=== PATIENT | male | born 1985 | race Caucasian/White ===

== ENCOUNTER → 2018-04-11 11:34 | Outpatient (CLI) | payer OTHER, SELFPAY | PROVIDERS: Visit Provider Internal Medicine | DX: B20 Human immunodeficiency virus [HIV] disease (principal) | CPT/HCPCS: 36415 ==

== ENCOUNTER → 2022-12-22 06:51 | Outpatient (CLI) | payer MEDICAID, SELFPAY ==
[2022-12-22 18:05] LABS: Basophils % 0.5 % (0.1-2.0); Eosinophils # 0.1 K/mm3 (0.0-0.4); Eosinophils % 1.6 % (0.1-12.0); Hematocrit 50.1 % (42.0-52.0); Hemoglobin 16.6 g/dL (14.1-18.0); Lymphocytes # 0.9 K/mm3 (0.7-4.5); Lymphocytes % 11.3 % (10-50); Mean Corpuscular HGB Conc 33.2 g/dL (31.8-35.4); Mean Corpuscular Volume 93.6 fl (80-94); Mean Platelet Volume 12.1 fl (7.4-10.4); Monocytes # 0.8 K/mm3 (0.1-1.0); Monocytes % 10.2 % (1.7-9.3); Neutrophils # 6.2 K/mm3 (1.8-7.8); Neutrophils % 76.4 % (37.0-80.0); Platelet Count 96 K/mm3 (142-424); Red Blood Count 5.35 M/mm3 (4.60-6.20); Red Cell Distribution Width 13.8 % (11.5-17.5); White Blood Count 8.1 K/mm3 (4.8-10.8)
== END ==
PROVIDERS: PCP Nurse Practitioner; Visit Provider Nurse Practitioner
DX: B20 Human immunodeficiency virus [HIV] disease (principal); R05.9 Cough, unspecified; Z87.01 Personal history of pneumonia (recurrent)
CPT/HCPCS: 85025

== ENCOUNTER → 2022-12-23 12:33 | Outpatient (CLI) | payer MEDICAID, SELFPAY ==
--- NOTE | 2022-12-23 12:37 | XR_ITS ---
FINAL REPORT CLINICAL HISTORY: cough, history of pneumonia, HIV COMPARISON: none FINDINGS: PA and lateral views of the chest were obtained. There is no prior exam for comparison. The cardiac and mediastinal silhouettes are within normal limits. There is right middle lobe opacity which may represent pneumonia. The lungs are otherwise clear. There is no pleural effusion or pneumothorax. No acute osseous abnormality is identified. IMPRESSION: Right middle lobe opacity may represent pneumonia. Reviewed, Interpreted and Dictated by Mary Ann Washington MD Transcribed by Diana Tellez Authenticated and [facility]
== END ==
PROVIDERS: PCP Nurse Practitioner; Visit Provider Nurse Practitioner
DX: B20 Human immunodeficiency virus [HIV] disease (principal); R05.9 Cough, unspecified; Z87.01 Personal history of pneumonia (recurrent)
CPT/HCPCS: 71046

== ENCOUNTER → 2023-01-17 10:36 | Outpatient (CLI) | payer MEDICAID, SELFPAY ==
[2023-01-17 19:05] LABS: Adenovirus,PCR Not Detected (NotDetected); Bordetella Pertussis Not Detected (NotDetected); Chlamydophila Pneumoniae, PCR Not Detected (NotDetected); Coronavirus 19, PCR Not Detected (NotDetected); Coronavirus 229E Not Detected (NotDetected); Coronavirus NL63 Not Detected (NotDetected); Coronavirus OC43 Not Detected (NotDetected); Coronovirus HKU1,PCR Not Detected (NotDetected); Human Metapneumovirus Not Detected (NotDetected); Influenza A, PCR Not Detected (NotDetected); Influenza AH1, 2009 Not Detected (NotDetected); Influenza AH1, PCR Not Detected (NotDetected); Influenza AH3,PCR Not Detected (NotDetected); Influenza B, PCR Not Detected (NotDetected); Mycoplasma Pneumoniae, PCR Not Detected (NotDetected); Parainfluenza 1, PCR Not Detected (NotDetected); Parainfluenza 2, PCR Not Detected (NotDetected); Parainfluenza 3, PCR Not Detected (NotDetected); Parainfluenza 4, PCR Not Detected (NotDetected); Respiratory Syncytial Virus Not Detected (NotDetected); Rhinovirus/Enterovirus Not Detected (NotDetected)
== END ==
PROVIDERS: PCP Nurse Practitioner; Visit Provider Nurse Practitioner
DX: J02.9 Acute pharyngitis, unspecified (principal); J06.9 Acute upper respiratory infection, unspecified
CPT/HCPCS: 87581; 87632; 87798; C9803; U0003; U0005

== ENCOUNTER 2023-10-15 12:28 | Emergency (ER) | payer MEDICAID, SELFPAY ==
[2023-10-15] VITALS (8 sets, daily range): BP systolic 106–154; BP diastolic 90–103; PULSE 106–121; RESP 18–28; TEMP 36.8; O2SAT 93–99; BMI 25.8; BMI 18.6
--- NOTE | 2023-10-15 13:37 | EXP.UTC ---
Discharge Plan Disposition Patient Disposition: Still a Patient Condition: Fair Prescriptions Prescriptions: No Action amoxicillin-pot clavulanate 875-125 mg tablet 1 tab PO BID Qty: 20 0RF lgwblmwqxunmrbz-arrhtbbqj-DC [Bromfed DM] 2-30-10 mg/5 mL syrup 5 ml PO Q4-6H PRN (Reason: cold symptoms) Qty: 240 0RF cetirizine 10 mg tablet 10 mg PO DAILY Qty: 30 5RF Biktarvy 50-200-25 mg tablet 1 tab PO DAILY Referrals Follow up/Referrals: Becky Aguilar APRN [Primary Care Provider] - See instructions Clinical Impressions Clinical Impression: Alcohol withdrawal, HIV (human immunodeficiency virus infection), Alcohol dependence Discharge ED Provider: Malathi Y[place] [facility] [place] General Chief complaint: Allergic Reaction Stated complaint: shakey, SOA, Sweating Time Seen by Provider: 10/15/23 13:37 History of Present Illness Provider Complaint: Patient states that he drink a lot of Vodka a few nights ago and not sure if he may be withdrawals or not States that last night he started shaking uncontrollably all over, feeling like he was losing his mind, feeling like he was over heating, sweating and like he was going crazy States that the ambulance came out to his house last night and checked his vitals and tried to get him to come to the hospital but he wouldnt come and today he started again with the same symptoms States that he does drink several times a week but not as much as he did on this night reports does smoke marijuana but denies the use of other drugs Related Data Home Medications Medication Instructions Recorded Confirmed bictegravir 50 mg-emtricitabine 1 tab PO DAILY 01/17/23 01/17/23 200 mg-tenofovir alafenam 25 mg tablet (Biktarvy) Previous Rx's Medication Instructions Recorded amoxicillin 875 mg-potassium 1 tab PO BID #20 tabs 01/17/23 clavulanate 125 mg tablet xzezgckwtrljzcl-kzqqjrgcenuequx-LM 5 ml PO Q4-6H PRN cold symptoms 01/17/23 2 mg-30 mg-10 mg/5 mL oral syrup #240 mL (Bromfed DM) cetirizine 10 mg tablet 10 mg PO DAILY #30 tabs 01/17/23 Allergies Allergy/AdvReac Type Severity Reaction Status Date / Time No Known Allergies Allergy Verified 01/17/23 10:25 [facility] Disclaimer: The information contained in this section may have been updated after the patient was seen, as this information can be updated by other users. Medical History History of pneumonia History of smoking HIV (human immunodeficiency virus infection) HIV disease Family History Grandmother Diabetes Social History Smoking Status: Current every day smoker alcohol intake: never substance use type: former substance user current occupational status: unemployed Travel in the last 8 weeks: Inside the [place] ROS Obtained: Yes All systems reviewed & no additional complaints except as documented and Yes Systems reviewed as appropriate & no additional complaints except as documented Constitutional Constitutional: Reports system reviewed and no additional complaints, except as documented, Reports as per HPI and Reports excessive sweating ENT Ears, Nose, Mouth, and Throat: Reports system reviewed and no additional complaints, except as documented, Reports as per HPI and Reports dizziness Cardiovascular Cardiovascular: Reports palpitations Respiratory Respiratory: Reports system reviewed and no additional complaints, except as documented, Reports as per HPI and Reports shortness of breath Gastrointestinal Gastrointestingal: Reports system reviewed and no additional complaints, except as documented and as per HPI Neurologic Neurologic: Reports system reviewed and no additional complaints, except as documented, Reports as per HPI, Reports dizziness and Reports other (reports shaking all over uncontrollably ) End
--- NOTE | 2023-10-15 13:38 | PC.NURSE ---
PATIENT SENT TO ER PER Leyla MCQUEEN APRN FOR FURTHER EVALUATION. REPORT GIVEN TO DR. RAMIREZ BY Leyla MCQUEEN APRN. PATIENT AMBULATED TO ER WITH [facility] STAFF ASSIST. FAMILY AT BEDSIDE
[2023-10-15 13:39] LABS: POC Glucose,Bedside 143 (70-110)
--- NOTE | 2023-10-15 14:03 | HMH.EDGENADL ---
Discharge Plan Disposition Patient Disposition: Xfer Short-Term Hosp Condition: Fair Prescriptions Prescriptions: No Action amoxicillin-pot clavulanate 875-125 mg tablet 1 tab PO BID Qty: 20 0RF qwtaugmklpiwbhp-dfexfwidy-BC [Bromfed DM] 2-30-10 mg/5 mL syrup 5 ml PO Q4-6H PRN (Reason: cold symptoms) Qty: 240 0RF cetirizine 10 mg tablet 10 mg PO DAILY Qty: 30 5RF Biktarvy 50-200-25 mg tablet 1 tab PO DAILY Referrals Follow up/Referrals: Becky Aguilar APRN [Primary Care Provider] - See instructions Clinical Impressions Clinical Impression: Alcohol withdrawal, HIV (human immunodeficiency virus infection), Alcohol dependence, Hypomagnesemia, Thrombocytopenia, Acute alcoholic hepatitis, Acute hyponatremia Discharge ED Provider: Mann Banerjee General Adult HPI <Mann Banerjee MD - Last Filed: 10/15/23 14:51> General Chief complaint: Alcohol Stated complaint: shakey, SOA, Sweating Time Seen by Provider: 10/15/23 13:37 Mode of Arrival: Ambulatory Source of Information: Patient Limitations: No Limitations Description of Symptoms (Recalled from ER Triage Doc. by RN): PATIENT C/O SHAKING, HOT FLASHSES, ANXIETY AND HIGH BLOOD PRESSURE. HE STATES HE STARTED SHAKING UNCONTROLLABLY LAST NIGHT AND FELT LIKE HE WAS LOSING HIS MIND. HE STATES THOUGHT HE WAS GOING THROUGH ALCOHOL [facility] AFTER DRINKING VODKA THE NIGHT BEFORE. PATIENT VISIBLY SHAKING AND UNABLE TO SIT STILL AT THIS TIME History of Present Illness HPI narrative: Patient is a 38-year-old male with a history of heavy alcohol abuse over the last 18 years most recently where he drinks at least 1 pint of vodka 3-4 times a week culminating in 2 nights ago having 2 pints of vodka and having severe anxiety feeling like he was going out of his head yesterday at which point he called EMS they advised that he come to the emergency department but he refused and then came to the urgent treatment clinic today and was transferred to the emergency department with significant anxiety. Patient's also had extensive diarrhea and vomiting denies any other drug use specifically meth occasionally will smoke marijuana. Of note he does have HIV has been off of his antiretroviral medications for 2 months but has his Biktarvy now refilled but states that he has not been undetectable from a viral load standpoint and his CD4 count has remained low. States he does have follow-up with HIV clinic and [place]. Related Data Home Medications Medication Instructions Recorded Confirmed bictegravir 50 mg-emtricitabine 1 tab PO DAILY 01/17/23 01/17/23 200 mg-tenofovir alafenam 25 mg tablet (Biktarvy) Previous Rx's Medication Instructions Recorded amoxicillin 875 mg-potassium 1 tab PO BID #20 tabs 01/17/23 clavulanate 125 mg tablet ljcidhgxdfntvjk-iyjzzhbnwdzeifq-RB 5 ml PO Q4-6H PRN cold symptoms 01/17/23 2 mg-30 mg-10 mg/5 mL oral syrup #240 mL (Bromfed DM) cetirizine 10 mg tablet 10 mg PO DAILY #30 tabs 01/17/23 Allergies Allergy/AdvReac Type Severity Reaction Status Date / Time No Known Allergies Allergy Verified 01/17/23 10:25 [facility] <Mann Banerjee MD - Last Filed: 10/15/23 14:51> [facility] Disclaimer: The information contained in this section may have been updated after the patient was seen, as this information can be updated by other users. Medical History History of pneumonia History of smoking HIV (human immunodeficiency virus infection) HIV disease Family History Grandmother Diabetes Social History Smoking Status: Current every day smoker alcohol intake: never substance use type: former substance user current occupational status: unemployed Travel in the last 8 weeks: Inside the [place] <Mann Banerjee MD - Last Filed: 10/15/23 14:51> ROS Obtained: Yes
[2023-10-15 14:12] LABS: Basophils % 0.5 % (0.1-2.0); Eosinophils # 0.1 K/mm3 (0.0-0.4); Eosinophils % 1.8 % (0.1-12.0); Hematocrit 56.1 % (42.0-52.0); Lymphocytes # 1.1 K/mm3 (0.7-4.5); Lymphocytes % 17.1 % (10-50); Mean Corpuscular HGB Conc 34.6 g/dL (31.8-35.4); Mean Corpuscular Hemoglobin 32.9 pg (27.0-31.2); Mean Platelet Volume 10.4 fl (7.4-10.4); Monocytes # 0.4 K/mm3 (0.1-1.0); Neutrophils # 4.9 K/mm3 (1.8-7.8); Neutrophils % 74.6 % (37.0-80.0); Red Cell Distribution Width 14.9 % (11.5-17.5); White Blood Count 6.6 K/mm3 (4.8-10.8)
[2023-10-15 14:15] LABS: Alanine Aminotransferase 125 U/L (12-78); Albumin Level 4.1 g/dl (3.5-5.0); Albumin/Globulin Ratio 0.7 (1.1-1.8); Alkaline Phosphatase 123 U/L (38-126); Aspartate Amino Transferase 233 U/L (17-59); Bilirubin,Total 1.9 mg/dl (0.2-1.3); Blood Urea Nitrogen 14 mg/dl (9-20); Calcium 9.7 mg/dl (8.4-10.2); Carbon Dioxide 33 mmol/L (22.0-30.0); Chloride 91 mmol/L (98-107); Creatinine Clearance Estimated 132 mL/min (50-200); Estimated Glomerular Filt Rate 126 ml/min (>60); GFR (African American) 152 ML/MIN (>60); Globulin 5.9 g/dL (1.3-3.2); Glucose 120 mg/dl (74-100)
[2023-10-15 14:16] LABS: Hemoglobin 19.6 g/dL (14.1-18.0); Platelet Count 29 K/mm3 (142-424)
[2023-10-15 14:17] LABS: Ethyl Alcohol < 10 mg/dl (0-10)
--- NOTE | 2023-10-15 14:17 | PC.NURSE ---
lab called with critical platelets of 29 MD aware
[2023-10-15 14:18] LABS: Anion Gap 8.2 mEq/L (5-15); Potassium 4.2 mmoL/L (3.5-5.1); Sodium 128 mmol/L (136-145)
[2023-10-15 14:30] LABS: INR 1.11 (0.9-1.1); Prothrombin Time 11.9 seconds (10.1-12.5)
--- NOTE | 2023-10-15 14:37 | PC.NURSE ---
Spoke with Toby at [facility] transfer center about possible pt transfer. Advised they would call back when the physician is available.
--- NOTE | 2023-10-15 15:04 | PC.NURSE ---
Dr. Martinez speaking with Dr. Foote at about possible transfer
--- NOTE | 2023-10-15 15:06 | PC.NURSE ---
Pt accepted to [facility] by [facility]
--- NOTE | 2023-10-15 15:14 | PC.NURSE ---
Called report to Julisa Avina RN @ [facility]
--- NOTE | 2023-10-15 15:35 | PC.NURSE ---
Patient reports he is unsure if he wants to be transferred to [facility]. @ [facility] and discussed with patient. Patient states he will make a phone call and then let us know
[2023-10-15 15:44] LABS: Barbiturates Screen,Urine Negative ng/ml (<200); Benzodiazepines Screen,Urine Negative ng/ml (<200); Cannabinoid Screen,Urine Positive ng/ml (<50); Cocaine Screen,Urine Negative ng/ml (<300); Methadone Screen,Urine Negative ng/ml (<300); Opiate Screen,Urine Negative ng/ml (<300); Phencyclidine Screen,Urine Negative ng/ml (<25)
[2023-10-15 16:03] LABS: Amphetamine/Metha Screen,Urine Positive ng/ml (<1000)
--- NOTE | 2023-10-15 16:09 | PC.NURSE ---
EMS notified of pt need for transport to [facility]
--- NOTE | 2023-10-15 16:20 | PC.NURSE ---
Called dietary for dinner tray for patient
--- NOTE | 2023-10-15 16:30 | PC.NURSE ---
Rounded on patient; call light within reach of patient. Patient eating at this time
--- NOTE | 2023-10-15 17:03 | PC.NURSE ---
REport given to Kyle Monroy for transfer to [facility].
== END 2023-10-15 17:14 | disposition short-term general hospital (02) ==
LOC: UTC 12:34 → ER 13:39
PROVIDERS: Nurse Practitioner; Emergency Provider Student in an Organized Health Care Education/Training Program; PCP Nurse Practitioner
DX: F10.230 Alcohol dependence with withdrawal, uncomplicated (principal); E83.42 Hypomagnesemia; D69.6 Thrombocytopenia, unspecified; E87.1 Hypo-osmolality and hyponatremia; K70.10 Alcoholic hepatitis without ascites; F17.200 Nicotine dependence, unspecified, uncomplicated; Z21 Asymptomatic human immunodeficiency virus [HIV] infection status
CPT/HCPCS: 80053; 80305; 82962; 83735; 85025; 85610; 96365; 96366; 96375; 99291

== ENCOUNTER 2024-09-24 18:00 | Emergency (ER) | payer MEDICAID, SELFPAY ==
[2024-09-24 18:01] VITALS: BP 156/107; PULSE 101; RESP 15; TEMP 36.6; O2SAT 100; BMI 21.6
--- NOTE | 2024-09-24 18:04 | ED_ITS ---
<Statement entered by Celeste Bailey DO - 09/24/24 21:25> I was consulted by the ZAN, and we discussed the complexity of the problems being addressed. I approved the treatment and management plan for this patient's care in the emergency department, thus performing a substantive portion of the medical decision making. Celeste Bailey DO Discharge Plan Disposition Patient Disposition: Home, Self-Care Condition: Good Prescriptions Prescriptions: New doxycycline hyclate 100 mg capsule 100 mg PO BID 10 Days Qty: 20 0RF No Action Biktarvy 50-200-25 mg tablet 1 tab PO DAILY cefdinir 300 mg capsule 300 mg PO BID Qty: 20 0RF omeprazole 40 mg capsule,delayed release(DR/EC) 40 mg PO DAILY Qty: 30 2RF cetirizine 10 mg tablet 10 mg PO DAILY Qty: 30 5RF Referrals Follow up/Referrals: Becky Aguilar APRN [Primary Care Provider] - See instructions Jeff,Anatoly Jasso MD [Referring] - See instructions (Bladder wall thickening, UTI) Activity Restrictions/Add. Instructions Additional Instructions/Restrictions: I have sent prescriptions into your pharmacy. Please take them till they are gone. Please avoid drinking or any other illicit substance use. I have referred you to urology for further evaluation of your cystitis. Follow-up with your PCP for no improvement or worsening signs or symptoms or return to the ER as needed Clinical Impressions Clinical Impression: Urinary tract infectious disease Qualifiers: Urinary tract infection type: site unspecified Hematuria presence: without hematuria Qualified Code(s): N39.0 - Urinary tract infection, site not specified Instructions Patient Instructions: DI for Urinary Tract Infection (UTI), DI for Urinary Tract Infection in Children Print Language Print Language: German Discharge ED Provider: Celeste Bailey General Adult HPI General Chief complaint: Urogenital-Male Stated complaint: Unable to pee Time Seen by Provider: 09/24/24 18:03 History of Present Illness HPI narrative: Patient presents for evaluation of dysuria. Patient reports that he has been able to urinate without great effort since Monday. He denies any pain burning fever chills hemoptysis hematochezia melena nausea vomiting diarrhea. Related Data Home Medications ?Medication ?Instructions ?Recorded ?Confirmed bictegravir 50 mg-emtricitabine 1 tab PO DAILY 01/17/23 03/13/24 200 mg-tenofovir alafenam 25 mg tablet (Biktarvy) Previous Rx's ?Medication ?Instructions ?Recorded cefdinir 300 mg capsule 300 mg PO BID #20 caps 03/13/24 omeprazole 40 mg capsule,delayed 40 mg PO DAILY #30 caps 03/13/24 release cetirizine 10 mg tablet 10 mg PO DAILY #30 tabs 04/10/24 doxycycline hyclate 100 mg capsule 100 mg PO BID 10 days #20 caps 09/24/24 Allergies Allergy/AdvReac Type Severity Reaction Status Date / Time No Known Allergies Allergy Verified 03/13/24 12:57 [facility] Disclaimer: The information contained in this section may have been updated after the patient was seen, as this information can be updated by other users. Medical History (Updated 09/24/24 @ 20:36 by JODY Nicholson) GERD (gastroesophageal reflux disease) History of smoking HIV (human immunodeficiency virus infection) History of pneumonia HIV disease Family History Grandmother Diabetes Social History Smoking Status: Current every day smoker alcohol intake: never substance use type: former substance user current occupational status: unemployed Travel in the last 8 weeks: [place] the [place] ROS Obtained: Yes Systems reviewed as appropriate & no additional complaints except as documented Physical Exam General General appearance: alert and in no apparent distress Respiratory Respiratory exam: Present normal lung sounds bilaterally Cardiovascular Cardiovascular exam: Present regular rate Neurological Exam Neurological exam: Present alert and oriented X3 Medical Decision Making Medical Records Medical records reviewed: Yes I reviewed the patient's medical records. Screening: Per USPSTF and CDC recommendations, given the prevalence of disease in our region, it is our hospital?s policy to screen for HIV and viral Hepatitis for all patients aged 18 and over and those with ongoing risk factors. [place] Inquiry Pt receiving controlled substance: No Vital Signs: 09/24/24 18:01 09/24/24 18:30 Temperature 97.9 F Temperature Source Oral Pulse Rate 85 Pulse Rate [Left Radial] 101 H Respiratory Rate 15 Blood Pressure 137/96 H Blood Pressure [Right Arm] 156/107 H Blood Pressure Mean [Right Arm] 123 02 Sat by Pulse Oximetry 100 100 Oxygen Delivery Method Room Air Room Air Lab Data Lab results reviewed: Yes I reviewed the patient's lab results. Lab Results 09/24/24 18:10: Urine Color Yellow, Urine Appearance Clear, Urine pH 7.0, Ur Specific [place] 1.010, Urine Protein Negative, Urine Glucose (UA) Negative, Urine Ketones Negative, Urine Blood Negative, Urine Nitrate Positive A, Urine Bilirubin Negative, Urine Urobilinogen 0.2, Ur Leukocyte Esterase Negative, Urine RBC Occasional, Urine WBC 3-5, Ur Squamous Epith Cells Occasional, Urine Bacteria 3+ 09/24/24 18:11: WBC 4.6 L, RBC 5.24, Hgb 17.2, Hct 50.0, MCV 95.5 H, MCH 32.8 H, MCHC 34.3, RDW 15.0, Plt Count 288, MPV 7.7, Neut % (Auto) 57.5, Lymph % (Auto) 34.7, [place] % (Auto) 5.7, Eos % (Auto) 0.9, Baso % (Auto) 1.4, Neut # (Auto) 2.6, Lymph # (Auto) 1.6, [place] # (Auto) 0.3, Eos # (Auto) 0.0, Baso # (Auto) 0.1, Sodium 144, Potassium 3.7, Chloride 104, Carbon Dioxide 32 H, Anion Gap 11.7, BUN 12, Creatinine 0.90, Estimated Creat Clear 108, Estimated GFR 93, Est GFR ( Amer) 113, Glucose 76, Calcium 9.1, Total Bilirubin 0.4, AST 45, ALT 35, Alkaline Phosphatase 54, Total Protein 7.9, Albumin 4.4, Globulin 3.5 H, Albumin/Globulin Ratio 1.3, HIV 1&2 Antibody Rapid Preliminary reactive 09/24/24 19:49: Urine Opiates Screen Negative, Urine Methadone Screen Negative, Ur Barbituates Screen Negative, Ur Phencyclidine Scrn Negative, Ur Amphetamines Screen Positive H, U Benzodiazepines Scrn Negative, Urine Cocaine Screen Negative, U Marijuana (THC) Screen Negative 09/24/24 18:11 09/24/24 18:11 Orders (Tests/Meds): ED MEDICATIONS Discontinued Medications Generic Name Dose Route Start Last Admin Trade Name Freq PRN Reason Stop Dose Admin Ceftriaxone Sodium 500 mg 09/24/24 20:33 Ceftriaxone 500mg Vial IM 09/24/24 20:34 ONCE ONE Doxycycline Hyclate 100 mg 09/24/24 20:34 Doxycycline Hycl 100 Mg Tablet PO 09/24/24 20:35 ONCE ONE Sodium Chloride 1,000 mls @ 999 mls/hr 09/24/24 18:09 09/24/24 18:15 Sod Chlor 0.9% 1000ml Bag IV 09/24/24 19:09 999 mls/hr .Q1H1M ONE Administration Iopamidol 75 ml 09/24/24 18:44 09/24/24 18:45 Iopamidol-370 (76%);100ml Bottle IV 09/24/24 18:45 75 ml ONCE ONE Administration Lidocaine HCl 0 ml 09/24/24 20:33 Lidocaine 1% 5ml Pf Vial IM 09/24/24 20:34 ONCE ONE Sodium Chloride 10 ml 09/24/24 18:44 09/24/24 18:45 Sodium Chloride 0.9% 10ml Syr (Rad Only) IV 09/24/24 18:45 10 ml ONCE ONE Administration ORDERS Category Date Time Status CT abdomen pelvis w con Stat Cat Scan 09/24/24 18:09 Completed Consult [employer] [CONS] Routine Cons 09/24/24 18:17 Active CBC w/Auto Diff [Complete Blood Count Auto Diff] Stat Lab 09/24/24 18:11 Completed CMP [Comprehensive Metabolic Panel] Stat Lab 09/24/24 18:11 Completed HIV (1&2) Antibody Rapid Stat Lab 09/24/24 18:11 Completed Hep C Ab with Reflex to RNA Stat Lab 09/24/24 18:11 Received UA [Urinalysis and Microscopic] Stat Lab 09/24/24 18:10 Completed UDS [Drug Screen,Urine] Stat Lab 09/24/24 19:49 Completed Urine Culture Stat Micro 09/24/24 18:10 Received Medical Decision Narrative: In summary patient is a 39-year-old male who presents to the emergency department for evaluation of dysuria. Patient is initially hypertensive with a blood pressure of 156/107 tachycardic at 101 breathing 15 times a minute satting at 100% on room air upon arrival, and afebrile at 97.9. Physical exam however is remarkable for no abdominal tenderness on palpation in suprapubic area normal breath sounds normal heart sounds abdominal exam is benign with normal bowel sounds. Differential diagnosis includes prostatitis versus bladder outlet obstruction versus cystitis versus complicated UTI etc. Initial workup will be conducted with hematologic labs urinalysis CT scan abdomen pelvis. Initial interventions include include Tylenol and Toradol for now. Initial workup reviewed by me shows his hematologic labs are nonactionable his urinalysis however shows significant UTI and my informal interpretation of CT scan abdomen pelvis shows thickening bladder wall with no obstructive pathology prior to radiology read.. Upon repeat evaluation patient reported improvement after initiation of Tylenol and Toradol.. Given this patient is appropriate for discharge with 500 mg Rocephin IM doxycycline with first dose given here and prescription sent to his pharmacy. Patient is been also referred to urology for further workup and follow. Critical Care Critical Care Time Critical Care Time: No
--- NOTE | 2024-09-24 18:05 | PC.NURSE ---
bladder scan performed, 85ml in bladder
--- NOTE | 2024-09-24 18:09 | CT_ITS ---
PROCEDURE INFORMATION: Exam: CT Abdomen And Pelvis With Contrast Exam date and time: 09/24/2024 6:36 PM Age: 39 years old Clinical indication: Other: Oliguria TECHNIQUE: Imaging protocol: Computed tomography of the abdomen and pelvis with contrast. Radiation optimization: All CT scans at this facility use at least one of these dose optimization techniques: automated exposure control; mA and/or kV adjustment per patient size (includes targeted exams where dose is matched to clinical indication); or iterative reconstruction. Contrast material: ISOVUE; Contrast volume: 75 ml; Contrast route: IV; COMPARISON: CR XR CHEST 2V 12/23/2022 12:46 PM FINDINGS: Liver: Normal. No mass. Gallbladder and biliary ducts: Normal. No calcified stones. No ductal dilation. Pancreas: Normal. No ductal dilation. Spleen: Normal. No splenomegaly. Adrenal glands: Normal. No mass. Kidneys and ureters: Normal. No hydronephrosis. Stomach and bowel: Unremarkable. No obstruction. No mucosal thickening. Appendix: No evidence of appendicitis. Intraperitoneal space: Unremarkable. No free air. No significant fluid collection. Vasculature: Unremarkable. No abdominal aortic aneurysm. Lymph nodes: Unremarkable. No enlarged lymph nodes. Urinary bladder: Urinary bladder wall thickening concerning for cystitis Reproductive: Unremarkable as visualized. Bones/joints: Unremarkable. No acute fracture. Soft tissues: Unremarkable. IMPRESSION: Cystitis. No additional acute findings.
[2024-09-24] MEDS: 0.9 % SODIUM CHLORIDE 1000ML 1,000 ML 999 ML IV (18:15)
[2024-09-24 18:23] LABS: Basophils # 0.1 K/mm3 (0-0.2); Basophils % 1.4 % (0.1-2.0); Eosinophils % 0.9 % (0.1-12.0); Hemoglobin 17.2 g/dL (14.1-18.0); Lymphocytes # 1.6 K/mm3 (0.7-4.5); Lymphocytes % 34.7 % (10-50); Mean Corpuscular HGB Conc 34.3 g/dL (31.8-35.4); Mean Corpuscular Hemoglobin 32.8 pg (27.0-31.2); Mean Corpuscular Volume 95.5 fl (80-94); Mean Platelet Volume 7.7 fl (7.4-10.4); Monocytes # 0.3 K/mm3 (0.1-1.0); Monocytes % 5.7 % (1.7-9.3); Neutrophils # 2.6 K/mm3 (1.8-7.8); Neutrophils % 57.5 % (37.0-80.0); Platelet Count 288 K/mm3 (142-424); Red Blood Count 5.24 M/mm3 (4.60-6.20); White Blood Count 4.6 K/mm3 (4.8-10.8)
[2024-09-24 18:28] LABS: Albumin Level 4.4 g/dl (3.5-5.0); Chloride 104 mmol/L (98-107); Potassium 3.7 mmoL/L (3.5-5.1); Sodium 144 mmol/L (136-145)
[2024-09-24 18:30] VITALS: BP 137/96; PULSE 85; O2SAT 100
[2024-09-24 18:30] LABS: Alanine Aminotransferase 35 U/L (12-78); Anion Gap 11.7 mEq/L (5-15); Aspartate Amino Transferase 45 U/L (17-59); Blood Urea Nitrogen 12 mg/dl (9-20); Carbon Dioxide 32 mmol/L (22.0-30.0); Creatinine Clearance Estimated 108 mL/min (50-200); Estimated Glomerular Filt Rate 93 ml/min (>60); GFR (African American) 113 ML/MIN (>60)
[2024-09-24 18:31] LABS: Albumin/Globulin Ratio 1.3 (1.1-1.8); Alkaline Phosphatase 54 U/L (38-126); Bilirubin,Total 0.4 mg/dl (0.2-1.3); Calcium 9.1 mg/dl (8.4-10.2); Globulin 3.5 g/dL (1.3-3.2); Glucose 76 mg/dl (74-100); Total Protein,Serum 7.9 g/dl (6.3-8.2)
[2024-09-24] MEDS: SODIUM CHLORIDE 0.9% 10ML SYR (RAD ONLY) 10 ML IV (18:45)
[2024-09-24] MEDS: IOPAMIDOL-370 (76%);100ML BOTTLE 75 ML IV (18:45)
[2024-09-24 19:56] LABS: Microscopic, Urine URINE MICROSCOPIC (MICROSCOPIC)
[2024-09-24 20:04] LABS: Appearance,Urine CLEAR (Clear); Bilirubin,Urine Negative (Negative); Blood, Urine Negative (Negative); Color,Urine YELLOW (Yellow); Glucose,Urine (UA) Negative (Negative); Ketones,Urine Negative (Negative); Leukocyte Esterase,Urine Negative (Negative); Nitrate,Urine POSITIVE (Negative); Protein,Urine Negative (Negative); Urobilinogen,Urine 0.2 EU/dl (0.2)
[2024-09-24 20:18] LABS: Barbiturates Screen,Urine Negative ng/ml (<200); Benzodiazepines Screen,Urine Negative ng/ml (<200)
[2024-09-24 20:19] LABS: Amphetamine/Metha Screen,Urine Positive ng/ml (<1000)
[2024-09-24 20:19] LABS: Bacteria,Urine 3+ /lpf; RBC,Urine Occasional #/hpf (0-3); Squamous Epithelial Cell,Urine Occasional #/hpf (0-5)
[2024-09-24 20:20] LABS: Cannabinoid Screen,Urine Negative ng/ml (<50); Cocaine Screen,Urine Negative ng/ml (<300)
[2024-09-24 20:21] LABS: Methadone Screen,Urine Negative ng/ml (<300); Opiate Screen,Urine Negative ng/ml (<300)
[2024-09-24 20:22] LABS: Phencyclidine Screen,Urine Negative ng/ml (<25)
[2024-09-24] MEDS: cefTRIAXone 500MG VIAL 500 MG IM (20:54)
[2024-09-24] MEDS: DOXYCYCLINE HYCL 100 MG TABLET PO (20:54)
[2024-09-24] MEDS: LIDOCAINE 1% 5ML PF VIAL IM (20:54)
[2024-09-24 20:55] VITALS: BP 130/100; PULSE 89; RESP 20; TEMP 36.6; O2SAT 100
--- NOTE | 2024-09-24 21:12 | PEERSUPPORT ---
Peer Support Note Patient Information Patient Information: DOS: 09/24/2024 ? Reason: AUD/ED Ps consult ? Previous Treatment: BUP/Naloxone [facility] Patient tapered off of suboxone then turned to alcohol, that lead him to where he is today. ? Support System: Father Recently started AA meetings-having difficulty making connections being sober. ? Current Stressors: Not being able to urinate Isolation and withdrawing- with being sober becoming depressed and feeling anxious at times. ? Motivation for Change: Patient states he has been in a relationship with vodka for many years drinking daily until the last few weeks going to AA meetings locally on his own with encouragement from his father to make the changes necessary to let the alcohol go. He instantly felt bad for drinking today thinking it would help him urinate. He says he gave his aunt the bottle of vodka to pour out knowing it was not helpful to him. He admits he does need mental health therapy and shows interest in referrals to [facility], and [facility]. ? Potential Barriers: UDS positive for Amphetamines. Patient denies any medications that are prescribed or taken illegally that would possibly screen positive. Patient states that he has smoked marijuana with someone who does use meth. ? Harm Reduction: Attend AA meetings regularly. -Practice boundaries with people who actively use.? -Consider treatment type best for patient care and situation, to discuss during follow up phone call by [facility] peer support. ? Recovery Plan: Atttend AA Meetings Educate on Alcohol use disorder and treatment/ medication options, to be discussed with his physician at or PCP. Patient agreed to follow up phone calls with [facility] peer support. Ps provided referrals to AA meetings local, Mental health peer support groups [facility] in [place], [place]. [facility]
[2024-09-26 06:15] LABS: HCV Ab Non Reactive (Non Reactive)
--- NOTE | 2024-09-26 08:53 | PC.NURSE ---
I reviewed pt's urine culture with Dr. Bailey, she sent in Bactrim to [facility]. I attempted to call pt to notify of medications changes and urine culture results. No answer on cell phone and unable to leave voicemail d/t mailbox full . Will call again later.
[2024-09-26 16:34] LABS: HIV 1 Ab Reactive (Non Reactive); HIV 2 Ab Non Reactive (Non Reactive); HIV Screen 4th Generation wRfx Preliminary Reactive (Non Reactive); HIV-1 Ab CHG YES; HIV-2 Ab CHG YES; Interpretation: HIV-1 Positive (.)
[2024-09-27 05:11] LABS: Neisseria gonorrhoeae, NAA Negative (Negative)
== END 2024-09-24 21:05 | disposition home or self-care (01) ==
PROVIDERS: Physician Assistant; Emergency Provider Emergency Medicine; PCP Nurse Practitioner
DX: R30.0 Dysuria (principal); N39.0 Urinary tract infection, site not specified
CPT/HCPCS: 74177; 80053; 80307; 81001; 85025; 86701; 86702; 86703; 86803; 87086; 87088; 87186; 87389; 87491; 87591; 96360; 96372; 99285; G0432; J0696; J7030; Q9967

== ENCOUNTER 2025-04-16 01:13 | Emergency (ER) | payer MEDICAID, SELFPAY ==
[2025-04-16] VITALS (7 sets, daily range): BP systolic 120–140; BP diastolic 88–101; PULSE 84–102; RESP 17–20; TEMP 36.6; O2SAT 97–100; BMI 20.3
--- OUTSIDE RECORDS SUMMARY | 2025-04-16 01:21 | XMS_ITS ---
Author Organization [facility] Address [address] [place] [address] Care Team Providers Care Cloth Shearer Name Role Phone Pcp, No Primary Care Provider UnavailArash Ventura Unavailable [phone] Denisa Diamond Unavailable Unav ailable Abdifatah August Status:Active (Active) Start date:10/20/2014 Enrollment date:10/20/2014 Related social drivers of health:Intimate Partner Violence, Alcohol Use, Tobacco Use, Financial Resource Strain, Depression, Stress,Food Insecurity, Transportation Needs, Housing Stability, Safety and Environment Case Team Name Relationship Phone Denisa Diamond(Responsible Staff) Pattie castillo Worker Continued Care and Services Coordination
--- OUTSIDE RECORDS SUMMARY | 2025-04-16 01:21 | XMS_ITS | Encounter Summary ---
Author Organization [facility] Address [address] [place] [address] Care Team Providers Care Biomedical Scientist Name Role Phone Symone Shea Unavailable Unavailable Lorenza Alva Unavailable Unavailable Pcp, No Primary Care Provider UnavailArash Ventura Unavailable [phone] Dea Zepeda LPN Unavailable UnavailDenisa Munson Unavailable Unav ailable Reason for Visit * Reason Comments Med Refill Encounter Details Date Type Department Care Team (Late st Contact Info) Description 03/08/2022 Refill [place] Clinic Infectious Disease [address], [address] [place] [address] Shellie Randall MD [address] [facility] [address] [place] [address] Human immunodeficiency virus (HIV) disease ([facility]) Social History Tobacco Use Types Packs/Day Years Used Date Smoking Tobacco: Every Day Alcohol Use Standard Drinks/Week Comments No 0 (1 standard drink = 0.6 oz pur e alcohol) Sex and Gender Information Value Date Recorded Sex Assigned at Male 05/17/2022 1:54 PM EDT Legal Sex Male 6:48 PM EDT Gender Identity Male 05/17/2022 1:54 PM EDT Sexual Orientation Bonner 05/17/2022 1: 54 PM EDT documented as of this encounter Miscellaneous Notes * Telephone Encounter - Cammie Sanchez RN - 03/14/2022 11:42 AM EDT Called patient but was unable to leave a voicemail due to his mailbox being full. * Telephone Encounter - Cammie Sanchez RN - 03/10/2022 11:35 AM EDT Called patient, unable to leave voicemail due to mailbox being full * Telephone Encounter - Cammie Sanchez RN - 03/09/2022 1:57 PM EDT Will try to reach out to the patient again documented in this encounter Plan of Treatment Not on file documented as of this encounter Goals Goal Patient Goal Type Associated Problems Recent Progress Patient-Stated? Author Patient to remain active in HIV care Care Plan Treatment Adherence On track( 023 2:48 PM EDT) Pooja Correa Patient to remain active on part B services/RW symone-eligible Care Plan Treatment Adherence On track( 023 2:49 PM EDT) Pooja Correa Patient to obtain undetectable viral load Care Plan Treatment Adherence On track( 023 2:49 PM EDT) Pooja Correa Patient to obtain stable long-term housing Care Plan Housing On track( 023 2:49 PM EDT) Pooja Correa documented as of this encounter Visit Diagnoses Diagnosis Human immunodeficiency virus (HIV) disease ([facility]) Human immunodeficiency virus [HIV] disease documented in this encounter Additional Health Concerns Active Problems Noted Date Diagnosed Date Treatment Adherence 07/15/2021 Housing 07/15/2021 Infection Onset Date Last Indicated Resolved Time Influenza 05/17/2022 05/17/2022 06/14/2022 5:23 AM EDT Influenza 06/20/2022 06/20/2022 07/18/2022 5:23 AM EDT Influenza 08/01/2022 08/01/2022 08/29/2022 5:23 AM EST Influenza 09/07/2022 09/07/2022 10/05/2022 5:23 AM EST COVID-19 Rule-Out 09/07/2022 09/07/2022 09/07/2022 10:49 PM EST Influenza 01/02/2023 01/02/2023 01/30/2023 5:23 AM EDT Influenza 02/02/2023 02/02/2023 03/02/2023 5:23 AM EDT Influenza 05/24/2023 05/24/2023 06/21/2023 5:23 AM EDT documented as of this encounter Care Teams Biomedical Scientist Relationship Specialty Start Date End Date Pcp, No [address] [place] [address] PCP - General Family Medicine 09/07/22 Symone Shea [facility] [address] [place] [address] Adjunct Professor Of English Sales Marketing Director 08/24/21 09/06/22 Lorenza [facility] [address] [place] [address] Adjunct Professor Of English Sales Marketing Director 05/17/22 10/14/24 Arash Sanabria PA [address] [place] [phone] Physician Continuous Mining Machine Lode Miner Infectious Diseases 09/12/22 Dea Zepeda, EVA VALUE-BASED TRANSFORMATION PROGRAM TCM Nurse 10/20/23 11/17/23 Denisa Diamond Adjunct Professor Of English Sales Marketing Director 10/15/24 documented as of this encounter
--- OUTSIDE RECORDS SUMMARY | 2025-04-16 01:21 | XMS_ITS | Encounter Summary ---
Author Organization [facility] Address [address] [place] [address] Care Team Providers Care Morning Show Host Name Role Phone Robb Shea Unavailable Unavailable Lorenza Alva Unavailable Unavailable Pcp, No Primary Care Provider UnavailArash Ventura Unavailable [phone] Dea Zepeda LPN Unavailable UnavailDenisa Munson Unavailable Unav ailable Reason for Visit * Reason Comments Med Refill Encounter Details Date Type Department Care Team (Late st Contact Info) Description 06/04/2021 [facility]ill [place] [facility] Infectious Disease [address], [address] [place] [address] Shellie Randall MD [address] [facility] [address] [place] [address] Human immunodeficiency virus (HIV) disease ([facility]) Social History Tobacco Use Types [...] PM EDT documented as of this encounter Plan of Treatment Not on file documented as of this encounter Visit Diagnoses Diagnosis Human immunodeficiency virus (HIV) disease ([facility]) Human immunodeficiency virus [HIV] disease documented in this encounter Additional Health Concerns Infection Onset Date Last Indicated Resolved Time [...] documented as of this encounter Care Teams Morning Show Host Relationship Specialty Start Date End Date Pcp, No [address] [place] [address] PCP - General Family Medicine 09/07/22 Robb Shea [facility] [address] [place] [address] Irrigation Teacher Sensitized Paper Tester 08/24/21 09/06/22 Lorenza [facility] [address] [place] [address] Irrigation Teacher Sensitized Paper Tester 05/17/22 10/14/24 Arash Sanabria PA [address] [place] [address] [address] [place] [address] Physician Jack Setter Infectious Diseases 09/12/22 Dea Zepeda LPN VALUE-BASED TRANSFORMATION PROGRAM TCM Nurse 10/20/23 11/17/23 Denisa Diamond Irrigation Teacher Sensitized Paper Tester 10/15/24 documented as of this encounter
--- OUTSIDE RECORDS SUMMARY | 2025-04-16 01:21 | XMS_ITS | Encounter Summary ---
Author Organization [facility] Address [address] [place] [address] Care Team Providers Care Service Desk Associate Name Role Phone Pcp, No Primary Care Provider Unavailabl Arash Jones Unavailable [phone] Denisa Diamond Unavailable Unav ailable Reason for Visit * Reason Comments Case Management Encounter Details Date Type Department Care Team (Late st Contact Info) Description 02/21/2025 Patient Outreach [facility] [address] [place] [address] Denisa Diamond Case Management Social History Tobacco Use Types Packs/Day Years Used Date Smoking Tobacco: Every Day Cigarettes 1.5 15 Smokeless Tobacco: Never Comments:Has not smoked in 5 days Alcohol Use Standard Drinks/Week Comments Yes 43 (1 standard drink = 0.6 oz pure alcohol) pt reports that he drinks a pint of vodka about 4 days a week PHQ-2 Answer Date Recorded Patient Health Questionnaire-2 Score 0 09/11/2024 Hunger Vital Sign Answer Date Recorded Within the past 12 months, y ou worried that your food would run out before you got the money to buy more. Never true 10/17/20 23 Within the past 12 months, t he food you bought just didn't last and you didn't have money to get more. Never true 10/17/2023 PRAPARE - Transportation Answer Date Re corded In the past 12 months, has l ack of transportation kept you from medical appointments or from getting medications? No 09/23 In the past 12 months, has l ack of transportation kept you from meetings, work, or from getting things needed for daily living? No 10/17/2023 Housing Stability Vital Sign Answer Herb e Recorded In the last 12 months, was t here a time when you were not able to pay the mortgage or rent on time? No 10/17/2023 Number of Places Lived in the Last Year Not on f ile 10/17/2023 In the last 12 months, was t here a time when you did not have a steady place to sleep or slept in a care home (including now)? No 10/17/2023 CAGE ASSESSMENT Answer Date Recorded Cage unable to access Not on file 10/15/2023 Maximum number of drinks you had on a given occasion in the last month? 5 or more drinks 10/15/2023 How many alcoholic Beverages do you typically drink in a week? 15 or more per week 10/15/2023 Have you ever felt you shoul d CUT down on your drinking? 1 10/15/2023 Have you been ANNOYED by peo ple criticizing your drinking? 0 10/15/2023 Have you felt GUILTY about your drinking? 1 10/15/2023 Have you had a drink first t hever in the morning (EYE-SHEET METAL TECHNICIAN) to steady your nerves or to get rid of a hangover? 0 10/15/2023 CAGE Questionnaire Score 2 023 Utilities Answer Date Recorded In the past 12 months has th e electric, gas, oil, or water company threatened to shut off services in your home? No 10/17/2023 PHQ-2A Answer Date Recorded Patient Health Questionnaire-2 Score 0 01/02/2023 Sex and Gender Information Value Date Recorded Sex Assigned at Male 05/17/2022 1:54 PM EDT Legal Sex Male 6:48 PM EDT Gender Identity Male 05/17/2022 1:54 PM EDT Sexual Orientation Bonner 05/17/2022 1: 54 PM EDT documented as of this encounter Miscellaneous Notes * Progress Notes - Denisa Dimaond - 02/21/2025 2:54 PM EDT MCM attempted to contact pt re: PHONG re certification and to inform him of upcoming ID appointmenton 02/26. MCM called 3 number listed in chart and was able to leave a vague message on only one. ELÍAS will continue to follow. documented in this encounter Plan of Treatment [...] Housing On track( 023 2:49 PM EDT) No Pooja Alcantara documented as of this encounter Visit Diagnoses Not on filedocumented in this encounter Additional Health Concerns Active Problems Noted Date Diagnosed Date Treatment Adherence 07/15/2021 Housing 07/15/2021 Assessment Noted Time A fall risk assessment has been complete d for the patient 10/03/2023 3:51 PM EST A Body Mass Index follow-up plan has been documented for the patient 09/11/2024 3:01 PM EST documented as of this encounter Care Teams Service Desk Associate Relationship Specialty Start Date End Date Pcp, No [address] [place] [address] PCP - General Family Medicine 09/07/22 Arash Sanabria PA [address] [place] [phone] Physician Digital Media Buyer Infectious Diseases 09/12/22 Denisa Diamond Technical Associate Shellfish Processing Machine Tender 10/15/24 documented as of this encounter
--- OUTSIDE RECORDS SUMMARY | 2025-04-16 01:21 | XMS_ITS | Encounter Summary ---
Author Organization [facility] Address [address] [place] [address] Care Team Providers Care Diabetes Territory Manager Name Role Phone Lorenza Alva Unavailable Unavailable Pcp, No Primary Care Provider Unavailabl e Arash Sanabria Unavailable [phone] Denisa Diamond Unavailable Unav ailable Reason for Visit * Reason Comments Med Refill Encounter Details Date Type Department Care Team (Late st Contact Info) Description 09/09/2024 Refill [facility] [address] [place] [address] Arash Sanabria PA [address] [place] [address] [address] [place] [address] Human immunodeficiency virus (HIV) disease ([facility]) Social History Tobacco Use Types Packs/Day Years [...] place to sleep or slept in a mcc (including now)? No 10/17/2023 CAGE ASSESSMENT Answer [...] drink first t hever in the morning (EYE-BREAK AND LOAD OPERATOR) to steady your nerves or to get [...] PM EDT documented as of this encounter Functional Status * Over the past 2 weeks, how often have you been bothered by any of the following problems? Question Answer Date of Assessment Author Little interest or pleasure in doing things Not at all 09/11/2024 1:36 PM Alex Puga Feeling down, depressed, or hopeless Not at all 09/11/2024 1:36 PM Alex Puga Patient Health Questionnaire -2 Score 0 09/11/2024 1:36 PM Alex Puga documented as of this encounter Miscellaneous Notes * Telephone Encounter - Wanda Pereira, RN - 09/09/2024 4:27 PM EST Has appt Tuesday 09/11, has enough medication until that appt documented in this encounter Plan of Treatment Not on file documented as of this encounter Goals Goal Patient Goal Type Associated Problems Recent Progress Patient-Stated? Author Patient to remain active in HIV care Care Plan Treatment Adherence On track( 023 2:48 PM EDT) Pooja Crorea Patient to remain active on part B services/RW symone-eligible Care Plan Treatment Adherence On track( 023 2:49 PM EDT) Pooja Correa Patient to obtain undetectable viral load Care Plan Treatment Adherence On track( 023 2:49 PM EDT) Pooja Corrae Patient to obtain stable long-term housing Care Plan Housing On track( 023 2:49 PM EDT) Pooja Correa documented as of this encounter Visit Diagnoses Diagnosis Human immunodeficiency virus (HIV) disease ([facility]) Human immunodeficiency virus [HIV] disease documented in this encounter Additional Health Concerns Active Problems Noted Date Diagnosed Date Treatment Adherence 07/15/2021 Housing 07/15/2021 Assessment Noted Time A fall risk assessment has been complete d for the patient 10/03/2023 3:51 PM EST A Body Mass Index follow-up plan has been documented for the patient 01/05/2024 9:05 AM EDT documented as of this encounter Care Teams Diabetes Territory Manager Relationship Specialty Start Date End Date Pcp, No [address] [place] [address] PCP - General Family Medicine 09/07/22 Lorenza Alva [facility] [address] [place] [address] Cook Chef Dude Wrangler 05/17/22 10/14/24 Arash Sanabria PA [address] [facility] [address] [place] [phone] Physician Cloud Subject Matter Expert Infectious Diseases 09/12/22 Denisa Diamond Cook Chef Dude Wrangler 10/15/24 documented as of this encounter
--- OUTSIDE RECORDS SUMMARY | 2025-04-16 01:21 | XMS_ITS | Clinical Summary ---
Author Organization [facility] Address [address] [place] [address] Phone Care Team Providers Care Cement Despatch Operator Name Role Phone Unavailable Primary Care Provider Unavailabl e Allergies Active Allergy Reactions Criticality Noted Date Comments No Known Allergies 01/25/2012 Medications buprenorphine-nalo xone (SUBOXONE) 8-2 mg SL Tablet, Sublingual Place under the tongue daily. Active lisdexamfetamine (VYVANSE) 50 mg Oral Capsule Take 50 mg by mouth every morning. Active dextroamphetamine (DEXTROSTAT) 10 mg Oral Tablet Take 10 mg by mouth daily. Active ondansetron (ZOFRAN-ODT) 4 mg Oral Tablet, Rapid DissolveIndication s:Vomiting, intractability of vomiting not specified, presence of nausea not specified, unspecified vomiting type Take 1 Tab by mouth every 4 hours. 15 Tab 1 02/28/20 21 Active Additional Information Patient not taking.Reason: Pt electing to not take the medication, Reported on 07/20/2024 BIKTARVY 50-200-25 mg Oral Tablet Take 1 Tablet by mouth daily. 01/02/20 24 Active lisinopriL (PRINIVIL;ZESTRIL) 10 mg Oral Tablet Take 10 mg by mouth daily. 10/03/20 23 Active Active Problems Problem Noted Date Diagnosed Date Alcoholic hepatitis without ascites 07/20/2024 Overview (07/20/2024): Noted by [facility] last documented on [id number] Cellulitis of unspecified finger 07/20/2024 Overview (07/20/2024): Noted by [email or web address] last documented on [id number] Hypokalemia 07/20/2024 Overview (07/20/2024): Noted by [facility] last documented on [id number] Hypomagnesemia 10/30/2023 Hypo-osmolality and hyponatremia 10/30/2023 Acute liver disease 10/15/2023 ADD (attention deficit disorder) 10/15/2023 Alcohol abuse with withdrawal 10/15/2023 Alcohol abuse 10/15/2023 Overview (07/20/2024): Noted by [facility] last documented on [id number] Nicotine dependence 10/15/2023 Anxiety disorder, unspecified 10/15/2023 Thrombocytopenia, unspecified 10/15/2023 Overview (07/20/2024): Noted by [facility] last documented on [id number] Last Assessment & Plan: 10/15/23 18:57 10/16/23 02:31 10/17/23 02:04 10/30/23 11:32 01/02/24 15:25 Platelet Count 24 (L) 18 (LL) 12 (LL) 101 (L) 108 (L) - repeating CBC and will monitor Marijuana use 10/15/2023 Tachycardia, unspecified 10/15/2023 Hyponatremia 10/15/2023 Hypertension 10/15/2023 Overview (07/20/2024): Noted by [facility] last documented on [id number] History of syphilis 10/15/2023 Major depressive disorder, single episode, mild 05/17/2022 Overview (07/20/2024): Mild depression History of substance use disorder 05/17/2022 Overview (07/20/2024): History of blurred vision Gonorrhea 09/14/2020 Opioid use disorder 08/20/2019 Methamphetamine use 08/20/2019 Hypermetropia of both eyes 10/17/2018 Polysubstance (excluding opioids) dependence 12/2017 Epididymoorchitis 10/10/2017 Herpes 06/26/2015 AIDS 10/25/2014 Esophagitis 10/25/2014 Immunizations Immunization Administration Dates Next Due DTaP, Unspecified Formulation 06/15/1989 ,11/16/1985,1984,07/16 Hepatitis B (Recombinant), Adjuvanted 01/02/2023 ,09/12/2022 Hepatitis B, Adult 09/14/2020,08/13/2018, 016 Influenza Seasonal Injectable 08/13/2018 Influenza Vaccine Quadrivalent PF 2022,09/12/2022,07/23/2020,08/29,07/20/2015 Influenza, Injectable, MDCK, PF, Quadrivalent 08/20/2021,07/29/2020 MMR 06/13/1996,06/27/1985 Pneumococcal Conjugate Vacci ne 13 Valent 12/15/2015 Pneumococcal Polysaccharide 23 Valent 09/14/2020 Polio, Unspecified Formulation 06/15/1989,1984,1984 Td, Unspecified Formulation 09/23/2010, 0 Tdap 04/11/2016,07/28/2013 Vaccinia, Smallpox Monkeypox Vaccine, Live Attenuated, Preservative Free 01/02/2023,09/12/2022 Medical History Medical History Date Comments HIV disease (HCC) Family History Medical History Relation Name Comments High Blood Pressure Father Relation Name Status Comments Father Alive Mother Alive Social History Tobacco Use Types Packs/Day Years Used Date Smoking Tobacco: Every Day Cigarettes Smokeless Tobacco: Never Tobacco Cessation:Ready to Q uit: Not Asked; Counseling Given: Not Answered Alcohol Use Standard Drinks/Week Comments Yes 0 (1 standard drink = 0.6 oz pure alcohol) occasionally drinks 1-2 times per month. Sex and Gender Information Value Date Recorded Sex Assigned at Not on file Legal Sex Male 6:52 AM EDT Gender Identity Not on file Sexual Orientation Not on file Obstetrics History Last Filed Vital Signs Vital Sign Reading Time Taken Comments Blood Pressure 140/102 07/20/2024 4:35 PM EDT Pulse 93 07/20/2024 4:35 PM EDT Temperature 36.9 C (98.4 F) 07/20/2024 4:35 PM EDT Respiratory Rate 18 07/20/2024 4:35 PM EDT Oxygen Saturation 98% 07/20/2024 4:35 PM EDT Inhaled Oxygen Concentration - - Weight 66.5 kg (146 lb 9.6 oz) 07/20/2024 4:35 P M EDT Height 180.3 cm (5' 11 ) 02/27/2021 2:07 PM EDT Body Mass Index 20.45 02/27/2021 2:07 PM EDT Plan of Treatment Health Maintenance Due Date Last Done Comments Meningococcal Vaccine ACWY (1 - Risk 2-dose series) 02/05/1986 Annual Wellness Exam 02/05/1987 Hepatitis A Vaccine (1 of 2 - Risk 2-dose series) 02/05/2003 COVID-19 Vaccine (3 - Moderna risk series) 03/01/2021 02/01/2021, 01/04/2021 Influenza Vaccine (Season Ended) 2025 08/27/2023, 09/12/2022, 08/20/2021, Additional history exists Pneumococcal Vaccine 0-49 (3 of 3 - PCV20 or PCV21) 09/14/2025 09/14/2020, 12/15/2015 DTaP/TDaP/Td (7 - Td or Tdap) 04/11/2026 04/11/2016, 07/28/2013, 09/23/2010, Additional history exists Hepatitis B Vaccine Completed 01/02/2023, 09/12/2022, 09/14/2020, Additional history exists Orthopoxvirus Vaccine Completed 01/02/2023, 022 Meningococcal B Vaccine Aged Out No l onger eligible based on patient's age to complete this topic Insurance [email or web address]
--- OUTSIDE RECORDS SUMMARY | 2025-04-16 01:21 | XMS_ITS | Clinical Summary ---
Author Organization [facility] Address [address] [place] [address] Care Team Providers Care Dynamometer Mechanic Name Role Phone Pcp, No Primary Care Provider UnavailArash Ventura Unavailable [phone] Denisa Diamond Unavailable Unav ailable Allergies No known active allergies Medications folic acid (Folvite) 1 MG tablet Take 1 tablet (1 mg) by mouth 1 (one) time each day. 30 tablet 10/18/20 Active Additional Information Patient not taking.Reported on 09/11/2024 thiamine (Vitamin B-1) 100 MG tablet Take 1 tablet (100 mg) by mouth 1 (one) time each day. 30 tablet 10/18/20 23 Active Additional Information Patient not taking.Reported on 09/11/2024 emollient lotionIndications:Dr cruz skin Apply to affected skin areas daily. 473 mL 01/02/20 Active Additional Information Patient not taking.Reported on 09/11/2024 Nicotine 21-14-7 MG/24HR kitIndications:Nicot ine Dependence Place 1 patch on the skin 1 (one) time each day. Wear 1 patch daily 1 kit 02/15/20 Active omeprazole OTC (PriLOSEC OTC) 20 MG EC tablet Take 1 tablet (20 mg) by mouth 1 (one) time each day. Do not crush, chew, or split. Active Bictegravir-Emtricit ab-Tenofov (Biktarvy) 50-200-25 MG tablet tabletIndications:Hu man immunodeficiency virus (HIV) disease (CMS/HCC) Take 1 tablet by mouth 1 (one) time each day. 30 tablet 6 09/11/20 24 Active Multiple Vitamin (multivitamin) tabletIndications:He althcare maintenance Take 1 tablet by mouth 1 (one) time each day. 30 tablet 11 09/11/20 24 Active buPROPion XL (Wellbutrin XL) 150 MG 24 hr tabletIndications:De pression, unspecified depression type,Tobacco use disorder Take 1 tablet (150 mg) by mouth 1 (one) time each day. Do not crush, chew, or split. 30 tablet 6 09/11/20 24 Active Active Problems Problem Noted Date Diagnosed Date Skin lesion of left upper extremity 09/13/2024 Assessment & Plan (09/13/2024 3:41 PM EST): - unclear etiology - referral to derm for consult - will monitor Alcohol use disorder 01/04/2024 Assessment & Plan (09/13/2024 3:35 PM EST): - in early remission - encouraged continued cessation - pt interested in establishing care with Dr. Cano to discuss treatment options, ordered referral Assessment & Plan (01/05/2024 9:04 AM EDT): - currently no drink in over one month - discussed the risks of substance use on health - will refer for ALVIN consult given pt is interested in recovery resources and medications Healthcare maintenance 01/04/2024 Assessment & Plan (09/13/2024 3:40 PM EST): Healthcare Maintenance Immunizations Immunization History Administered Date(s) Administered DTaP 1985, 1985, 11/16/1985, 06/15/1989 DTaP, Unspecified 1984, 1984, 11/16/1985, 06/15/1989 Hep B, adult 12/15/2015, 08/13/2018, 09/14/2020 HepB-CpG 09/12/2022, 01/02/2023 IPV 1984, 06/27/1985, 06/15/1989 Influenza, Recombinant, injectable, preservative free 08/08/2024 Influenza, injectable, MDCK, preservative free, quadrivalent 07/29/2020, 08/20/2021 Influenza, injectable, quadrivalent, preservative free 07/20/2015, 08/29/2019, 07/23/2020, 09/12/2022, 08/27/2023 Influenza, seasonal, injectable 08/13/2018 MMR 06/27/1985, 06/13/1996 Moderna COVID-19 Vaccine (Business Systems Developer) 12+ years 01/04/2021, 02/01/2021 Pfizer Covid-19 Vaccine 12y+, Cristo Protein, PF, Jose-Sucrose 08/08/2024 Pneumococcal Conjugate PCV 13 12/15/2015 Pneumococcal Polysaccharide PPV23 09/14/2020 Polio, Unspecified 1984, 06/27/1985, 06/15/1989 TD (adult), 2 Lf tetanus toxoid, preservative free, adsorbed 11/03/1999, 09/23/2010 Td (adult), unspecified 11/03/1999, 09/23/2010 Tdap 07/28/2013, 04/11/2016 Vaccinia, Smallpox Monkeypox Vaccine Live, Pf 09/12/2022, 01/02/2023 Zoster, Recombinant 01/02/2024, 09/11/2024 Cancer Screenings Anal pap: collected today Colon cancer: due at 45 Lung cancer: pack-yr history Other Screenings DEXA: due at 50 AAA: due at 64 Quantiferon Gold: negative 05/17/22 Labs ASCVD: The ASCVD Risk score (Perri AMBROCIO, et al., 2019) failed to calculate for the following reasons: The valid total cholesterol range is 130 to 320 mg/dL' A1c: Lab Results Component Value Date HGBA1C 5.1 05/17/2022 Referrals Dentist: referred today Ophthalmology: referred today Dry skin 01/04/2024 Hypo-osmolality and hyponatremia 10/30/2023 Hypomagnesemia 10/30/2023 Alcohol abuse with withdrawal 10/15/2023 ADD (attention deficit disorder) 10/15/2023 Alcohol abuse 10/15/2023 Anxiety disorder, unspecified 10/15/2023 History of syphilis 10/15/2023 Marijuana use 10/15/2023 Tobacco use disorder 10/15/2023 Assessment & Plan (09/13/2024 3:34 PM EST): - smoking cigarettes - counseled on the risks of continued tobacco use and encouraged cessation - discussed cessation options. Pt does not have a risk of seizures and interested in bupropion. - discussed Bupropion, potential benefits, risks, and potential side effects - discussed if pt becomes depressed to let clinic know and if SI develops to call [phone] - starting Bupropion 150 mg daily Thrombocytopenia, unspecified 10/15/2023 Assessment & Plan (09/13/2024 3:41 PM EST): - repeating CBC and will monitor Assessment & Plan (01/05/2024 9:03 AM EDT): 10/15/23 18:57 10/16/23 02:31 10/17/23 02:04 10/30/23 11:32 01/02/24 15:25 Platelet Count 24 (L) 18 (LL) 12 (LL) 101 (L) 108 (L) - repeating CBC and will monitor Vitamin D deficiency, unspecified 10/15/2023 Hyponatremia 10/15/2023 Acute liver disease 10/15/2023 Hypertension 10/15/2023 Blood alcohol level of less than 20 mg/100 ml Tachycardia, unspecified 10/15/2023 Acute pharyngitis, unspecified 06/22/2023 Nausea 06/22/2023 Viral infection, unspecified 06/22/2023 Acute upper respiratory infection, unspecified 0 01/17/2023 Early syphilis, latent 01/06/2023 Human immunodeficiency virus (HIV) disease 05/17 Assessment & Plan (09/13/2024 3:38 PM EST): Dx: 09/2014 Rubens CD4: 0 RFs: MSM OI Hx: STI Hx: syphilis Genotype Hx: 05/17/22- none ART Hx: Stribild Genvoya BIC/FTC/TAF (current) Discussed: - ART adherence and risk of virologic resistance with ART in-adherence - current labs, lab parameters to monitor, and lab schedule/frequency - U=U and TAsP - OIs in HIV and vaccine recommendations for PLWH - safe sexual practices and risk reduction strategies Plan: - continuing Biktarvy; refilled - labs ordered including HIV VL, CD4, CBC, CMP, and STI screening including RPR, GC and CT PCR - ordered anal pap - vaccines: shingrex #1, next due in 2-6 months - follow up in 4 weeks, sooner if needed Assessment & Plan (01/05/2024 9:02 AM EDT): Discussed: - importance of strict ART adherence - current labs, lab parameters to monitor, and lab schedule/frequency - U=U and TAsP - OIs in HIV and vaccine recommendations for PLWH - safe sexual practices and risk reduction strategies Plan: - continuing on Biktarvy; refilled - labs ordered including HIV VL, CD4, CBC, CMP, STI screening - shingrex #1 today, next 2-6 months from today - follow up 03/25/24 Assessment & Plan (10/06/2023 1:49 PM EST): Discussed: - ART, ART options, potential benefits and risks/side effects - ART adherence and risk of virologic resistance with ART in-adherence - current labs, lab parameters to monitor, and lab schedule/frequency - U=U and TAsP - OIs in HIV and vaccine recommendations for PLWH - safe sexual practices and risk reduction strategies Plan: - continuing Biktarvy; refill placed - labs today including HIV VL, CD4, CBC, CMP, and STI screening - vaccines: declined - follow up in 3 months, sooner if needed Assessment & Plan (01/02/2023 4:06 PM EDT): Lab Results Component Value Date ABSCD4 270 (L) 09/07/2022 ABSCD4 221 (L) 05/17/2022 ABSCD4 399 (L) 07/15/2021 ABSCD4 309 (L) 10/01/2020 PCCD4 26.1 (L) 09/07/2022 PCCD4 23.8 (L) 05/17/2022 PCCD4 28.27 (L) 07/15/2021 PCCD4 26.15 (L) 10/01/2020 HIVCOPIES <40 09/07/2022 HIVCOPIES 1,886 05/17/2022 HIVCOPIES <40 07/15/2021 HIVCOPIES 21,581 10/01/2020 - achieved virologic suppression in 08/2022; CD4 >200 - refill placed for Biktarvy; encouraged continued strict adherence - labs ordered inlcuding HIV VL and CD4c; will monitor - vaccines: heplisav #2 and mpoxx #2 today - follow up in 2 months Assessment & Plan (09/12/2022 6:25 PM EST): Lab Results Component Value Date ABSCD4 270 (L) 09/07/2022 ABSCD4 221 (L) 05/17/2022 ABSCD4 399 (L) 07/15/2021 ABSCD4 309 (L) 10/01/2020 PCCD4 26.1 (L) 09/07/2022 PCCD4 23.8 (L) 05/17/2022 PCCD4 28.27 (L) 07/15/2021 PCCD4 26.15 (L) 10/01/2020 HIVCOPIES <40 09/07/2022 HIVCOPIES 1,886 05/17/2022 HIVCOPIES <40 07/15/2021 HIVCOPIES 21,581 10/01/2020 - HIV VL now undetectable; CD4c 270/26% - continuing Biktarvy - labs reviewed with patient - vaccines today: flu, COVID-19, Hep B #1, mpox #1 - discussed with Dr. Randall and pt will continue care with me; patient agrees to plan Assessment & Plan (09/07/2022 2:22 PM EST): Patient was viremic in 04/2022. He has not had labs since. It looks like he had been out of care in 2020 and then re-established with us in 05/2022 He switched to Biktarvy earlier this year and pt reports that he has been taking adherently - continuing Biktarvy; refill placed - getting routine labs today including HIV VL and CD4c; will monitor - STI screening today - discussed that until we know he is undetectable then he can potentially transmit HIV - follow up with me in one week - follow up with Dr. Randall in 10/2022 Assessment & Plan (06/20/2022 5:33 PM EDT): -continue on current medication regimen Major depressive disorder, single episode, mild 05/17/2022 Overview (05/17/2022): Mild depression History of substance use disorder 05/17/2022 Overview (05/17/2022): History of blurred vision Gonorrhea 09/14/2020 Methamphetamine use 08/20/2019 Opioid use disorder 08/20/2019 Hypermetropia of both eyes 10/17/2018 Polysubstance (excluding opioids) dependence 12/2017 Epididymoorchitis 10/10/2017 Testicular discomfort 10/10/2017 Depression 04/11/2017 Assessment & Plan (09/13/2024 3:39 PM EST): - denies SI or HI - mood unstable - discussed Bupropion, potential benefits, risks, and potential side effects - discussed if pt becomes depressed to let clinic know and if SI develops to call [phone] - starting Bupropion 150 mg daily Testosterone deficiency 03/27/2017 Influenza 11/18/2016 Herpes 06/26/2015 AIDS 10/25/2014 Esophagitis 10/25/2014 Resolved Problems Problem Noted Date Diagnosed Date Resolved Date Tobacco use 01/02/2023 10/15/2023 Assessment & Plan (10/06/2023 1:49 PM EST): - encouraged cessation and discussed risks on health - not interested in NRT at this time - will re evaluate next visit Assessment & Plan (01/02/2023 4:09 PM EDT): - smoking 1ppd cigarettes - pre-contemplative stage - discussed cessation options - will follow up in 2 months to consider smoking cessation Atypical pneumonia 09/08/2022 Assessment & Plan (09/12/2022 6:20 PM EST): Originally presented 09/08 with chest pain, shortness of breath XR chest revealed pleural effusion and infrahilar and interstitial opacities R>L Obtained flu, RSV, and COVID testing, all negative Prescribed azithromycin and Augmentin - finishing up Azithromycin and Augmentin - will follow up in 4-6 weeks for vaccines and HIV follow up Assessment & Plan (09/08/2022 8:25 AM EST): XR chest revealing pleural effusion and infrahiler and interstitial opacities R>L - starting Augmentin and Azithromycin for CAP coverage - obtained flu, COVID, RSV swabs to evaluate for possible etiology - follow up in one week, will have clinic staff check in this week Chest pain 09/07/2022 10/15/2023 Assessment & Plan (09/08/2022 8:19 AM EST): Patient had two weeks of flu-like symptoms including body aches, fever, chills, diarrhea, and productive cough. Did not seek care until today. Has developed right-sided chest pain for the past 2 days. On exam Pt had area of erythema to the right of lower right sternal border. Ordered EKG and clinic EKG not working - ordering XR chest 2 views; pt to go to [facility] to get this completed - ordering labs including blood culture given his body aches, fever, chills - ordering Mobic 15 mg daily and topical diclofenac - follow up in one week, will have clinic staff check in on him this week Candidal stomatitis 05/17/2022 10/15/20 Overview (05/17/2022): Oral thrush Assessment & Plan (06/20/2022 5:32 PM EDT): -plan to establish dental care -certified credit counselor on proper dental hygiene, tongue scraping with toothbrush Diarrhea, unspecified 05/17/20222021 Overview (05/17/2022): Diarrhea Influenza due to unidentifie d influenza virus with other respiratory manifestations 05/17/2022 Overview (05/17/2022): Influenza Encounters Date Type Department Care Team Description 02/21/2025 Patient Outreach [facility] [address] [place] [phone] Denisa Diamond Case Management 02/19/2025 Patient Outreach [facility] [address] [place] [phone] Denisa Diamond Case Management 02/17/2025 Patient Outreach [facility] [address] [place] [phone] Denisa Diamond Case Management 01/30/2025 Patient Outreach [address] [phone] Denisa Diamond Case Management from Last 3 Months Immunizations Immunization Administration Dates Next Due DTaP 06/15/1989, 6,1984,07/16 DTaP, Unspecified 06/15/1989, 6,1984,07/16 Hep B, adult 09/14/2020,08/13/2018,12/15/2015 HepB-CpG 01/02/2023,09/12/2022 IPV 06/15/1989,06/27/1985,1984 Influenza, Recombinant, inje ctable, preservative free 08/08/2024 Influenza, injectable, MDCK, preservative free, quadrivalent 08/20/2021,07/29/2020 Influenza, injectable, quadr ivalent, preservative free 08/27/2023,09/12/2022,07/23/2020,08/29,07/20/2015 Influenza, seasonal, injectable 08/13/2018 MMR 06/13/1996,06/27/1985 Pneumococcal Conjugate PCV 13 12/15/2015 Pneumococcal Polysaccharide PPV23 09/14/2020 Polio, Unspecified 06/15/1989,06/27/1985, 984 TD (adult), 2 Lf tetanus tox oid, preservative free, adsorbed 09/23/2010,11/03/1999 Td (adult), unspecified 09/23/2010,11/03/1999 Tdap 04/11/2016,07/28/2013 Vaccinia, Smallpox Monkeypox Vaccine Live, Pf 01/02/2023,09/12/2022 Zoster, Recombinant 09/11/2024,01/02/2024 Family History Medical History Relation Name Comments COPD Father Multiple sclerosis Mother knee replacement Mother multiple schlerosis Mother Diabetes Paternal Grandmother Relation Name Status Comments Father Mother Paternal Grandmother Social History Tobacco Use Types Packs/Day Years Used Date Smoking Tobacco: Every Day Cigarettes 1.5 15 Smokeless Tobacco: Never Tobacco Cessation:Ready to Q uit: Not Asked; Counseling Given: Not Answered Comments:Has not smoked in 5 days Alcohol [...] money to buy more. Never true 10/17/20 Within the past 12 months, t he [...] place to sleep or slept in a correction (including now)? No 10/17/2023 CAGE ASSESSMENT Answer [...] drink first t hever in the morning (EYE-CASINO SURVEILLANCE OFFICER) to steady your nerves or to get rid of a hangover? 0 10/15/2023 CAGE Questionnaire Score 2 023 Utilities Answer Date Recorded In the past 12 months has th [employer], gas, oil, or water company threatened to shut off services in your home? No 10/17/2023 PHQ-2A Answer Date Recorded Patient Health Questionnaire-2 Score 0 01/02/2023 Sex and Gender Information Value Date Recorded Sex Assigned at Male 05/17/2022 1:54 PM EDT Legal Sex Male 6:48 PM EDT Gender Identity Male 05/17/2022 1:54 PM EDT Sexual Orientation Bonner 05/17/2022 1: 54 PM EDT Last Filed Vital Signs Vital Sign Reading Time Taken Comments Blood Pressure 128/80 09/11/2024 1:37 PM EST Pulse 80 09/11/2024 1:37 PM EST Temperature 36.9 C (98.4 F) 09/11/2024 1:37 PM EST Respiratory Rate 18 10/15/2023 10:00 PM EST Oxygen Saturation 99% 09/11/2024 1:37 PM EST Inhaled Oxygen Concentration - - Weight 66.3 kg (146 lb 2.6 oz) 09/11/2024 1:37 P M EST Height 182.9 cm (6') 09/11/2024 1:37 PM EST Body Mass Index 19.82 09/11/2024 1:37 PM EST Plan of Treatment Health Maintenance Due Date Last Done Comments [facility]-/Child/Adol SDOH Screenings 1985 [facility]-Varicella Vaccines (1 of 2 - 13+ 2-dose series) 02/05/1997 [facility]- SDOH Screenings 02/05/2002 [facility]-Adult SDOH Screenings 02/05/2002 [facility]-Hepatitis A Vaccines (1 of 2 - Risk 2-dose series) 02/05/2003 [facility]-Depression Screening 09/11/2025 09/11/2024 [facility]-Pneumococcal Vaccine: Pediatrics (0 to 5 Years) and At-Risk Patients (6 to 49 Years) (3 of 3 - PPSV23, PCV20 or PCV21) 09/14/2025 09/14/2020, 12/15/2015 [facility]-DTaP,Tdap,and Td Vaccines (7 - Td or Tdap) 04/11/2026 04/11/2016, 07/28/2013, 09/23/2010, Additional history exists [facility]-IPV Vaccines Completed 06/15/1989, , 06/27/1985, Additional history exists [facility]-Hepatitis B Vaccines Completed 023, 09/12/2022, 09/14/2020, Additional history exists [facility]-Hepatitis C Screening Completed 2022, 10/15/2023, 05/17/2022, Additional history exists [id number] Vaccine Completed 08/08/2024, 02/01/2021, 01/04/2021 [facility]-Influenza Vaccine Completed 08/08/2024 , 08/27/2023, 09/12/2022, Additional history exists [facility]-Zoster Vaccines Completed 09/11/2024, 4 HPV Vaccines Aged Out No longer eligi ble based on patient's age to complete this topic [facility]-HIB Vaccines Aged Out No longer e ligible based on patient's age to complete this topic [facility]-Rotavirus Vaccines Aged Out No lo nger eligible based on patient's age to complete this topic Goals Goal Patient Goal Type Associated Problems [...] 023 2:49 PM EDT) No Pooja Alcantara Procedures Procedure Name Priority Date/Time Associated Diagnosis Comments HEPATITIS C ANTIBODY - ED W/REFLEX TO HCV QUANT PCR STAT 10/15/2023 6:57 PM EST from Last 3 Months or Most Recently Relevant to Health Maintenance Results * Hepatitis C Antibody - ED W/Reflex to HCV Quant PCR (10/15/2023 6:57 PM EST) Hepatitis C Antibody Negative Negative 10/16/2023 12:13 AM EST [facility] Blood Venous blood specimen / Unknown Venipuncture / Unknown 10/15/2023 6:57 PM EST 10/15/2023 7:10 PM EST Jesusita Rodriguez APRN LAB BLOOD ORDERABLES Final Result Performing Organization Address City/State/[facility] Co de Phone Number [facility] [address] [place] [address] from Last 3 Months or Most Recently Relevant to Health Maintenance Additional Health Concerns Active Problems Noted Date Diagnosed Date Treatment Adherence 07/15/2021 Housing 07/15/2021 Insurance [facility] MEDICAID INFECTIOUS DISEASE PROGRAM INFECTIOUS DISEASE PROGRAM Advance Directives * Full Code (Latest Code Status on File) Date Activated Date Inactivated Comments 10/15/2023 10:13 PM 10/17/2023 3:29 PM Question Answer Comments Patient has decision-making capacity? Yes Care Teams Dynamometer Mechanic Relationship Specialty Start Date End Date Pcp, No [address] [place] [address] PCP - General Family Medicine 09/07/22 Arash Sanabria PA [address] [place] [phone] Physician Director Of Nuclear Medicine Infectious Diseases 09/12/22 Denisa Diamond Roving Inspector Procedure Analyst 10/15/24
--- OUTSIDE RECORDS SUMMARY | 2025-04-16 01:21 | XMS_ITS | Encounter Summary ---
Author Organization [facility] Address [address] [place] [address] Care Team Providers Care Gamma Operator Name Role Phone Pcp, No Primary Care Provider Unavailabl Arash Jones Unavailable [phone] Denisa Diamond Unavailable Unav ailable Reason for Visit * Reason Comments Case Management Encounter Details Date Type Department Care Team (Late st Contact Info) Description 02/17/2025 Patient Outreach [facility] [address] [place] [phone] Denisa Diamond Case Management Social [...] place to sleep or slept in a intermediate (including now)? No 10/17/2023 CAGE ASSESSMENT Answer [...] drink first t hever in the morning (EYE-SECURITY ADMINISTRATOR) to steady your nerves or to get [...] Miscellaneous Notes * Progress Notes - Denisa Diamond - 02/17/2025 10:29 AM EDT P: Follow Up Reschedule/KADAP expiration Duration: 30 min D/A: ELÍAS contacted pt due to his KADAP expiring this week. Pt stated that he would like to completerecert over the phone and requested that MCM call him at 12 pm on his lunch break. Pt also stated that he was running low on medication and needs to schedule a follow up. ELÍAS contacted the pt at 12 pm to inform him of his scheduled appointment and complete KADAP. Pt did not answer and there was no option to leave a message. ELÍAS will continue to attempt contact. documented in this encounter Plan of Treatment [...] Adherence On track( 023 2:49 PM EDT) No Pooja Alcantara Patient to obtain undetectable viral load Care [...] documented as of this encounter Care Teams Gamma Operator Relationship Specialty Start Date End Date Pcp, No [address] [place] [address] PCP - General Family Medicine 09/07/22 Arash Sanabria PA [address] [facility] [address] [place] [phone] Physician Pyridine Operator Infectious Diseases 09/12/22 Denisa Diamond Pickler Helper Plant Care Worker 10/15/24 documented as of this encounter
--- OUTSIDE RECORDS SUMMARY | 2025-04-16 01:21 | XMS_ITS ---
Care Plan Created on: April 16, 2025 Raffy Rodriguez : 1985 Sex: Male Author Organization Healthcare Address [address] [place] [address] Care Team Providers Care Recruiting And Selection Consultant Name Role Phone Pcp, No Primary Care Provider Unavailabl Arash Jones Unavailable [phone] Denisa Diamond Unavailable Unav ailable Active Problems Problem Noted Date Diagnosed Date [...] 08/13/2018 MMR 06/27/1985, 06/13/1996 Moderna COVID-19 Vaccine (Pre Press Operator) 12+ years 01/04/2021, 02/01/2021 Pfizer Covid-19 Vaccine [...] know and if SI develops to call [phone] - starting Bupropion 150 mg daily Thrombocytopenia, [...] know and if SI develops to call [phone] - starting Bupropion 150 mg daily Testosterone [...] chest 2 views; pt to go to [facility] to get this completed - ordering labs including blood culture given his body aches, fever, chills - ordering Mobic 15 mg daily and topical diclofenac - follow up in one week, will have clinic staff check in on him this week Candidal stomatitis 05/17/2022 10/15/20 Overview (05/17/2022): Oral thrush Assessment & Plan (06/20/2022 5:32 PM EDT): -plan to establish dental care -personnel counselor on proper dental hygiene, tongue scraping with toothbrush Diarrhea, unspecified 05/17/20222021 Overview (05/17/2022): Diarrhea Influenza due to unidentifie d influenza virus with other respiratory manifestations 05/17/2022 Overview (05/17/2022): Influenza Additional Health Concerns Active Problems Noted Date Diagnosed Date Treatment Adherence 07/15/2021 Housing 07/15/2021 Goals Goal Patient Goal Type Associated Problems [...] 023 2:49 PM EDT) No Pooja Alcantara Interventions Care Plan Interventions Intervention Entry Date Outcome Remind patient to apply for Section 8/HUD benefits as eligible. 07/15/2021 Refer patient to MARY/RENATO. 07/15/2021 Patient agreed to work hard to not miss more than 3 doses over the next 90 days. 07/15/2021 Submit recert paperwork on pt's behalf/as required. 07/15/2021 Raffy will provide supporting documentation (proof of income, insurance, residency). 07/15/2021 Raffy will complete paperwork for recertification in [facility]W Part B program. 07/15/2021 Raffy to take Biktary as prescribed. 07/15/2021 Raffy to attend appts with ID provider as scheduled, or reschedule as appropriate. 07/15/2021 Related Goals and Interventions Goal Associated Intervent ions Patient to remain active in HIV care Gar y to take Biktary as prescribed.; Raffy to attend appts with ID provider as scheduled, or reschedule as appropriate. Patient to remain active on part B services/RW symone-eligible Submit recert paperwork on pt's behalf/a s required.; Raffy will provide supporting documentation (proof of income, insurance, residency).; Raffy will complete paperwork for recertification in Part B program. Patient to obtain undetectable viral jana d Patient agreed to work hard to not miss more than 3 doses over the next 90 days. Patient to obtain stable pari -term housing Remind patient to apply for Section 8/HU D benefits as eligible.; Refer patient to AVOL/HAP.
--- OUTSIDE RECORDS SUMMARY | 2025-04-16 01:21 | XMS_ITS | Encounter Summary ---
Author Organization [facility] Address [address] [place] [address] Care Team Providers Care Processing Archivist Name Role Phone Pcp, No Primary Care Provider Unavailabl Arash Jones Unavailable [phone] Denisa Diamond Unavailable Unav ailable Reason for Visit * Reason Comments Case Management Encounter Details Date Type Department Care Team (Late st Contact Info) Description 02/19/[address] [facility] [address] [place] [id number] Denisa Diamond Case Management Social [...] place to sleep or slept in a retirement (including now)? No 10/17/2023 CAGE ASSESSMENT Answer [...] drink first t hever in the morning (E[employer]IANCE) to steady your nerves or to get [...] * Progress Notes - Denisa Diamond - 02/19/2025 1:46 PM EDT MCM attempted to contact pt [...] documented as of this encounter Care Teams Processing Archivist Relationship Specialty Start Date End Date Pcp, No [address] [place] [address] PCP - General Family Medicine 09/07/22 Arash Sanabria PA [address] [place] [phone] Physician Marketing Admin Infectious Diseases 09/12/22 Denisa Diamond Tool Pusher Coffee Brewer 10/15/24 documented as of this encounter
--- NOTE | 2025-04-16 01:45 | ECG_ITS ---
APPROVED REPORT Exam: Resting ECG HR:98 bpm ECG Measurements Heart Rate 98 AXES DC 136 P 82 QRSd 96 QRS 88 QT 337 T -1 QTc 392 Conclusion Sinus rhythm Right atrial enlargement LVH ST depressions and T wave inversions in inferior leads without reciprocal elevation Electronically signed by : DOUGIE PEARCE, 04/16/2025 13:26:59
[2025-04-16 01:50] LABS: Basophils % 0.2 % (0.1-2.0); Hematocrit 43.9 % (42.0-52.0); Hemoglobin 15.9 g/dL (14.1-18.0); Immature Granulocytes # 0.02 10^3uL; Immature Granulocytes % 0.2 %; Lymphocytes # 0.9 K/mm3 (0.7-4.5); Lymphocytes % 9.6 % (10-50); Mean Corpuscular HGB Conc 36.2 g/dL (31.8-35.4); Mean Corpuscular Hemoglobin 33.7 pg (27.0-31.2); Mean Platelet Volume 12.1 fl (7.4-10.4); Monocytes # 1.2 K/mm3 (0.1-1.0); Monocytes % 12.3 % (1.7-9.3); Neutrophils # 7.4 K/mm3 (1.8-7.8); Neutrophils % 77.7 % (37.0-80.0); Nucleated Red Blood Cells # 0 10^3/uL; Nucleated Red Blood Cells % 0 %; Platelet Count 57 K/mm3 (142-424); Red Blood Count 4.72 M/mm3 (4.60-6.20); Red Cell Distribution Width 12.6 % (11.5-17.5); Red Cell Distribution Width-SD 43.3 fL; White Blood Count 9.5 K/mm3 (4.8-10.8)
--- NOTE | 2025-04-16 01:51 | HMH.EDGENADL ---
Discharge Plan Disposition Patient Disposition: Left Against Medical Advice Prescriptions Prescriptions: No Action Biktarvy 50-200-25 mg tablet 1 tab PO DAILY Referrals Follow up/Referrals: Provider,Referral, MD [Primary Care Provider, Medical] - See instructions Activity Restrictions/Add. Instructions Additional Instructions/Restrictions: Please return to the ER or be evaluated elsewhere if you change your mind about seeking medical care. I am seriously worried about your condition and I think you could if you do not seek medical care. Clinical Impressions Clinical Impression: Rhabdomyolysis, DIDIER (acute kidney injury), Alcohol withdrawal hallucinosis, Methamphetamine use, Auditory hallucinations, Elevated LFTs, Electrolyte abnormality Print Language Print Language: Armenian Discharge ED Provider: Kamran Durham General Adult HPI General Chief complaint: Psychiatric Symptoms Stated complaint: mental health check,possible hallucinations Time Seen by Provider: 04/16/25 01:14 History of Present Illness HPI narrative: 40-year-old male with history of HIV, most recently undetectable, alcoholism, last drink earlier today but has been trying to come off for the last 2 days, methamphetamine and marijuana use, presents with father for evaluation. Father reports that the patient has been hearing and seeing things over the last couple of days that are not there. This is unusual for him. No history of schizophrenia. Father reports that he did act like this little bit when he was going through detox for alcohol many years ago. The patient has been in and out of rehab in the past. The hallucinations are primarily auditory, but some visual disturbances have occurred as well. Patient says he has been drinking half a pint a day, stopped drinking for the last few days with exception of a small amount of alcohol tonight. The dad says that he thinks the patient has been drunk over the last couple of weeks at least. Patient admits to using meth, last use a couple days ago. Related Data Home Medications ?Medication ?Instructions ?Recorded ?Confirmed bictegravir 50 mg-emtricitabine 1 tab PO DAILY 01/17/23 04/14/25 200 mg-tenofovir alafenam 25 mg tablet (Biktarvy) Allergies Allergy/AdvReac Type Severity Reaction Status Date / Time No Known Allergies Allergy Verified 04/14/25 11:41 [facility] Disclaimer: The information contained in this section may have been updated after the patient was seen, as this information can be updated by other users. Medical History GERD (gastroesophageal reflux disease) History of smoking HIV (human immunodeficiency virus infection) History of pneumonia HIV disease Family History Grandmother Diabetes Social History Smoking Status: Current every day smoker alcohol intake: never substance use type: former substance user current occupational status: unemployed Travel in the last 8 weeks?: Inside the [place] ROS Obtained: Yes All systems reviewed & no additional complaints except as documented Physical Exam General General appearance: alert and anxious Comment: Thin Head Head exam: atraumatic and normocephalic Eye Eye exam: Present normal appearance, PERRL and EOMI ENT ENT exam: Present normal oropharynx and normal external ear exam Neck Neck exam: Present normal inspection and full ROM Chest Chest inspection: Present normal inspection and symmetric chest wall rise; Absent tenderness Respiratory Respiratory exam: Present normal lung sounds bilaterally; Absent respiratory distress Cardiovascular Cardiovascular exam: Present normal rhythm and tachycardia Abdominal Exam Abdominal exam: Present soft; Absent distention, tenderness or guarding Extremities Exam Extremities exam: Present normal inspection; Absent edema or joint swelling Back Exam Back exam: Present normal inspection; Absent tenderness Neurological Exam Neurological exam: Present alert and oriented X3; Absent motor sensory deficit Psychiatric Psychiatric exam: Present anxious and other (Recent audiovisual hallucinations, no active hallucinations reported) Skin Skin exam: Present warm, dry and normal color Lymphatic Lymphatic Findings: no adenopathy Medical Decision Making Medical Records Medical records reviewed: Yes I reviewed the patient's medical records. Screening: Per USPSTF and CDC recommendations, given the prevalence of disease in our region, it is our hospital?s policy to screen for HIV and viral Hepatitis for all patients aged 18 and over and those with ongoing risk factors. Lambert Inquiry Pt receiving controlled substance: No Lambert was queried for this patient: No Vital Signs: 04/16/25 01:47 04/16/25 02:00 04/16/25 02:31 Temperature 97.9 F Temperature Source Oral Pulse Rate 89 84 Pulse Rate [Left Radial] 102 H Respiratory Rate 18 17 Blood Pressure 140/92 H 120/97 H Blood Pressure [Right Arm] 132/101 H Blood Pressure Mean [Right Arm] 111 Blood Pressure Source [Right Arm] Automatic Cuff Blood Pressure Position [Right Arm] Sitting 02 Sat by Pulse Oximetry 100 99 97 Oxygen Delivery Method Room Air 04/16/25 03:00 04/16/25 03:30 04/16/25 04:00 Temperature Temperature Source Pulse Rate 95 H 96 H 88 Pulse Rate [Left Radial] Respiratory Rate 20 20 20 Blood Pressure 122/88 126/95 H 134/90 Blood Pressure [Right Arm] Blood Pressure Mean [Right Arm] Blood Pressure Source [Right Arm] Blood Pressure Position [Right Arm] 02 Sat by Pulse Oximetry 97 100 99 Oxygen Delivery Method Lab Data Lab results reviewed: Yes I reviewed the patient's lab results. Lab Results 04/16/25 01:37: WBC 9.5, RBC 4.72, Hgb 15.9, Hct 43.9, MCV 93.0, MCH 33.7 H, MCHC 36.2 H, RDW 12.6, Plt Count 57 L, MPV 12.1 H, Neut % (Auto) 77.7, Lymph % (Auto) 9.6 L, [place] % (Auto) 12.3 H, Eos % (Auto) 0.0 L, Baso % (Auto) 0.2, Neut # (Auto) 7.4, Lymph # (Auto) 0.9, [place] # (Auto) 1.2 H, Eos # (Auto) 0.0, Baso # (Auto) 0.0, PT 11.7, INR 1.06, APTT 25.4, Sodium 132 L, Potassium 3.8, Chloride 90 L, Carbon Dioxide 27, Anion Gap 18.8 H, BUN 43 H, Creatinine 2.50 H, Estimated Creat Clear 37, Estimated GFR 29 L, Est GFR ( Amer) 35 L, Glucose 118 H, Calcium 10.3 H, Phosphorus 5.7 H, Magnesium 1.3 L, Total Bilirubin 1.3, AST 151 H, ALT 80 H, Alkaline Phosphatase 69, Total Creatine Kinase 4523 H*, Total Protein 9.2 H, Albumin 5.2 H, Globulin 4.0 H, Albumin/Globulin Ratio 1.3, Salicylates < 1.0 L, Acetaminophen < 10 L, Plasma/Serum Alcohol 66 H 04/16/25 01:50: VBG pH 7.31, VBG pCO2 50.2, VBG pO2 28.5, VBG HCO3 24.6, VBG Total CO2 26.1, VBG O2 Saturation 49.0 L, VBG Base Excess -1.7, VBG Lactic Acid 2.4 H 04/16/25 04:16: Urine Color Yellow, Urine Appearance Clear, Urine pH 5.5, Ur Specific [place] 1.025, Urine Protein 1+ A, Urine Glucose (UA) Negative, Urine Ketones Trace, Urine Blood 1+ A, Urine Nitrate Negative, Urine Bilirubin 1+ A, Urine Urobilinogen 0.2, Ur Leukocyte Esterase Negative, Urine RBC 10-20, Urine WBC 10-20, Ur Squamous Epith Cells Occasional, Calcium Oxalate Crystal 2+, Urine Bacteria 2+, Urine Sperm 1+, Urine Opiates Screen Negative, Urine Methadone Screen Negative, Ur Barbituates Screen Negative, Ur Phencyclidine Scrn Negative, Ur Amphetamines Screen Not Reportable, U Benzodiazepines Scrn Positive H, Urine Cocaine Screen Negative, U Marijuana (THC) Screen Positive H 04/16/25 01:37 04/16/25 01:37 Orders (Tests/Meds): ED MEDICATIONS Generic Name Dose Route Start Last Admin Trade Name Freq PRN Reason Stop Dose Admin Diazepam 5 mg 04/16/25 01:46 04/16/25 03:12 Diazepam 10mg/2ml Syringe IV 05/16/25 01:45 5 mg Q1HP PRN Administration CIWA Score 8-15 Folic Acid 1 mg 04/16/25 09:00 Folic Acid 1mg Tablet PO 05/16/25 08:59 DAILY [facility] Multivitamins 10 ml/ Thiamine 1,015 mls @ 150 mls/hr 04/16/25 02:00 04/16/25 01:59 HCl 100 mg/ Magnesium Sulfate IV 04/16/25 08:45 150 mls/hr 2 gm/ Lactated Ringer's .Q6H46M [facility] Administration Multivitamins 1 each 04/16/25 17:00 Multivitamin Tablet PO 05/16/25 16:59 1700 [facility] Thiamine HCl 100 mg 04/16/25 09:00 Thiamine 100mg Tablet PO 04/18/25 09:01 DAILY [facility] Discontinued Medications Generic Name Dose Route Start Last Admin Trade Name Freq PRN Reason Stop Dose Admin Diazepam 10 mg 04/16/25 01:33 04/16/25 02:05 Diazepam 10mg/2ml Syringe IV 04/16/25 01:34 10 mg ONCE ONE Administration Lactated Ringer's 1,000 mls @ 999 mls/hr 04/16/25 01:45 04/16/25 04:34 Lactated Ringer's 1000 Ml Bag IV 04/16/25 02:45 999 mls/hr .Q1H1M MACK Administration ORDERS Category Date Time Status Acetaminophen Stat Lab 04/16/25 01:37 Completed Activated Partial Thrombo Time Routine Lab 04/16/25 01:37 Completed CBC w/Auto Diff [Complete Blood Count Auto Diff] Stat Lab 04/16/25 01:37 Completed CK [Creatine Kinase] Stat Lab 04/16/25 01:37 Completed CMP [Comprehensive Metabolic Panel] Stat Lab 04/16/25 01:37 Completed Ethanol [Ethyl Alcohol] Stat Lab 04/16/25 01:37 Completed Magnesium Routine Lab 04/16/25 01:37 Completed Phosphorous Routine Lab 04/16/25 01:37 Completed Prothrombin Time INR Routine Lab 04/16/25 01:37 Completed Salicylate Stat Lab 04/16/25 01:37 Completed UA [Urinalysis and Microscopic] Stat Lab 04/16/25 04:16 Completed UDS [Drug Screen,Urine] Stat Lab 04/16/25 04:16 Completed Urine Culture Stat Micro 04/16/25 04:16 Received VBG [Venous Blood Gas] Stat RT 04/16/25 01:50 Completed Medical Decision Narrative: 40-year-old male with history of alcoholism and meth use presents for audio visualizations of the last couple of days. He reports last meth use was 2 days ago. Reports that has been trying to detox from alcohol for the last couple of days. History was obtained via interactive discussion with patient, patient's father, chart review. On arrival, patient is [afebrile, hemodynamically stable, satting appropriately, alert, oriented x4, GCS 15], moving all extremities spontaneously. Full physical exam performed and significant for mild tremors and anxiety. Patient's initial CIWA is 11. Differential includes but is not limited to alcohol withdrawal hallucinations, methamphetamine induced hallucinations, exacerbation of underlying psychiatric condition, intoxication. Patient was given 10 of Valium IV as well as a 2 L of fluid and rally pack for symptomatic management and correction of underlying abnormalities. Workup initiated including CBC CMP CK UA UDS salicylate and Tylenol VBG EKG ethanol. On re-evaluation, patient patient CIWA is 8, given 5 additional milligrams of Valium. Laboratory workup independently interpreted by me and significant for significant DIDIER with creatinine 2.5. Rhabdomyolysis with CK greater than 4000, no significant leukocytosis, normal coags, no significant acidosis. Mild hypercalcemia and hyperphosphatemia, mildly elevated LFTs, Tylenol and salicylate negative, alcohol level 66. EKG independently interpreted by me and significant for sinus rhythm, rate of 98, T wave inversions in the inferior leads, normal intervals. Given patient history, exam and workup, patient's presentation most likely represents alcohol withdrawal hallucinosis in addition to rhabdomyolysis producing DIDIER. I had extensive repeated discussion with patient and his father regarding his presentation. I was in the room at least for 5 separate times discussing his history, labs, prognosis, encouraging him to be admitted. I strongly recommended he be admitted to the hospital for further assessment given my concern for acute complicated alcohol withdrawal as well as rhabdo with significant renal dysfunction. Patient repeatedly refused. 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 He reports that he understands that his life is potentially in danger but he reports that he has to make money somehow and he does not feel like he can stay. I discussed with him that his kidneys could fail, that he could develop seizures, that he could . He reports that he understands this and is willing to take that risk. Although patient has had some auditory hallucinations for the last couple of days, he is currently alert oriented and I believe he is able to make his own medical decisions. He is not suicidal homicidal and is able to have a karla conversation regarding his health. Ultimately, he was discharged AMA. He was encouraged to return if he changes his mind. I considered discharge with benzodiazepine taper, but I am concerned that he is likely to continue drinking, and I am also concerned for possible diversion. Recommended he return if his withdrawal symptoms continue to worsen. A peer support consult was placed. Procedures Risk/Benefits of Procedure(s) Were Explained: Yes Critical Care Critical Care Time Critical Care Time: Yes Attestation: On 04/16/25, the high probability of a clinically significant, sudden or life threatening deterioration of the following system(s) required my full and direct attention, intervention and personal management. The time I documented below is in addition to time spent performing reported procedures but includes the following listed in this critical care notation. Total Time Total Critical Care Time: 65
[2025-04-16 01:58] LABS: VBG Base Excess -1.7 mmol/L (-2.4-2.3); VBG HCO3 24.6 mmol/L (23-30); VBG PCO2 50.2 mmol/L (35-51); VBG PH 7.31 mmol/L (7.31-7.41); VBG PO2 28.5 mmol/L (28-40); VBG Total CO2 26.1 mmol/L (23-27)
[2025-04-16 01:58] LABS: Alanine Aminotransferase 80 U/L (12-78); Albumin Level 5.2 g/dl (3.5-5.0); Albumin/Globulin Ratio 1.3 (1.1-1.8); Alkaline Phosphatase 69 U/L (38-126); Anion Gap 18.8 mEq/L (5-15); Aspartate Amino Transferase 151 U/L (17-59); Bilirubin,Total 1.3 mg/dl (0.2-1.3); Blood Urea Nitrogen 43 mg/dl (9-20); Calcium 10.3 mg/dl (8.4-10.2); Carbon Dioxide 27 mmol/L (22.0-30.0); Chloride 90 mmol/L (98-107); Creatinine Clearance Estimated 37 mL/min (50-200); Estimated Glomerular Filt Rate 29 ml/min (>60); GFR (African American) 35 ML/MIN (>60); Glucose 118 mg/dl (74-100); Potassium 3.8 mmoL/L (3.5-5.1); Sodium 132 mmol/L (136-145); Total Protein,Serum 9.2 g/dl (6.3-8.2)
[2025-04-16] MEDS: MVI, ADULT NO.1 WITH VIT K 10 ML, THIAMINE HCL 100 MG, MAGNESIUM SULFATE 2 GM in LACTAT... 150 ML IV (01:59)
[2025-04-16 02:00] LABS: Lactate Venous 2.4 mmol/L (0.4-2.0)
[2025-04-16 02:01] LABS: Acetaminophen < 10 ug/ml (10-30); Salicylate < 1.0 mg/dL (2.0-20.0)
[2025-04-16 02:02] LABS: Activated Partial Thrombo Time 25.4 seconds (22.8-30.6); INR 1.06 (0.9-1.1); Prothrombin Time 11.7 seconds (10.1-12.5)
[2025-04-16 02:04] LABS: Ethyl Alcohol 66 mg/dl (0-10); Magnesium 1.3 mg/dl (1.6-2.3); Phosphorous 5.7 mg/dl (2.5-4.5)
[2025-04-16] MEDS: diazePAM 10MG/2ML SYRINGE 10 MG IV (02:05)
[2025-04-16] MEDS: diazePAM 10MG/2ML SYRINGE 5 MG IV (03:12)
[2025-04-16 04:23] LABS: Appearance,Urine CLEAR (Clear); Blood, Urine 1+ (Negative); Color,Urine YELLOW (Yellow); Glucose,Urine (UA) Negative (Negative); Ketones,Urine TRACE (Negative); Leukocyte Esterase,Urine Negative (Negative); Microscopic, Urine URINE MICROSCOPIC (MICROSCOPIC); Nitrate,Urine Negative (Negative); PH,Urine 5.5 (5.0-8.5); Protein,Urine 1+ (Negative); Specific Gravity, Urine 1.025 (1.005-1.030); Urobilinogen,Urine 0.2 EU/dl (0.2)
[2025-04-16] MEDS: LACTATED RINGERS 1000ML 1,000 ML 999 ML IV (04:34)
[2025-04-16 04:37] LABS: Barbiturates Screen,Urine Negative ng/ml (<200)
[2025-04-16 04:38] LABS: Benzodiazepines Screen,Urine Positive ng/ml (<200); Cannabinoid Screen,Urine Positive ng/ml (<50)
[2025-04-16 04:39] LABS: Cocaine Screen,Urine Negative ng/ml (<300); Methadone Screen,Urine Negative ng/ml (<300)
[2025-04-16 04:40] LABS: Phencyclidine Screen,Urine Negative ng/ml (<25)
[2025-04-16 04:41] LABS: Bilirubin,Urine 1+ (Negative); Opiate Screen,Urine Negative ng/ml (<300)
[2025-04-16 04:58] LABS: Creatine Kinase 4523 U/L (55-170)
[2025-04-16 05:14] LABS: Bacteria,Urine 2+ /lpf; Squamous Epithelial Cell,Urine Occasional #/hpf (0-5)
[2025-04-16 05:16] LABS: Calcium Oxalate Crystals,Urine 2+ /lpf; Sperm,Urine 1+ /lpf
[2025-04-16 06:01] LABS: Reflex Lactic Add Lactic Reflex
--- NOTE | 2025-04-16 06:07 | PC.NURSE ---
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 Pt was thoroughly educated by Mann Durham MD and this RN on need for hospital admission, and risks of leaving hospital, including . Pt signed out of ED AMA.
--- NOTE | 2025-04-16 14:26 | PEERSUPPORT ---
Peer Support Note Patient Information Patient Information: DOS: 04/16/2025 Ps attempted to make contact, number in chart not active.
[2025-04-20 10:51] LABS: Amphetamine POSITIVE; Amphetamines POSITIVE
[2025-04-20 10:52] LABS: Amphetamine (GC/MS) >3000; Methamphetamine POSITIVE
[2025-04-20 10:53] LABS: Methamphetamine (GC/MS) >3000
== END 2025-04-16 06:10 | disposition left against medical advice (07) ==
PROVIDERS: Emergency Provider Emergency Medicine
DX: F10.132 Alcohol abuse with withdrawal with perceptual disturbance (principal); F15.10 Other stimulant abuse, uncomplicated; R44.0 Auditory hallucinations; M62.82 Rhabdomyolysis; R94.5 Abnormal results of liver function studies; E87.8 Other disorders of electrolyte and fluid balance, not elsewhere classified; N17.9 Acute kidney failure, unspecified; F17.210 Nicotine dependence, cigarettes, uncomplicated; Z21 Asymptomatic human immunodeficiency virus [HIV] infection status; Y90.3 Blood alcohol level of 60-79 mg/100 ml
CPT/HCPCS: 80053; 80307; 80320; 80324; 80329; 81001; 82550; 82803; 83735; 84100; 85025; 85610; 85730; 87086; 93005; 96365; 96366; 96375; 99291; J3360; J3411; J3475; J7120